=== PATIENT | female | born 1970 | race Caucasian/White ===

== ENCOUNTER 2016-07-14 17:19 | Emergency (ER) | payer SELFPAY ==
[2016-07-14] MEDS ORDERED: OXYCODONE-ACETAMINOPHEN 5-325 MG TABLET PO ONE (18:45)
--- NOTE | 2016-07-14 18:46 | ER Document Report ---
ED Medical Screen (RME) - General Mode of Arrival: Ambulatory Information source: Patient TRAVEL OUTSIDE OF THE [place] IN LAST 30 DAYS: No - HPI Patient complains to provider of: Right Chest wall pain Onset: This evening Associated Symptoms: Other - see notes above <ODILON DE OLIVEIRA - Last Filed: 07/14/16 18:58> <CHIPPATRICIA LEAH - Last Filed: 07/14/16 20:18> - General Chief Complaint: Abdominal Pain Stated Complaint: RIGHT FLANK PAIN Notes: 45 year old female with history of pleurisy presents to the ED complaining of right chest wall pain that started earlier today. Patient reports the pain is exacerbated with breathing and urination. Patient reports she took Tylenol for pain, but asks specifically for Dilaudid and Morphine upon examination. Prior to triage, patient was seen smoking outside. (ODILON DE OLIVEIRA) - Related Data Allergies/Adverse Reactions: No Known Allergies Allergy (Verified 07/14/16 17:53) Past Medical History - General Information source: Patient - Social History Family history: Reviewed & Not Pertinent - Past Medical History Cardiac Medical History: Reports: Hx Hypertension Pulmonary Medical History: Reports: Hx Sleep Apnea Denies: Hx Tuberculosis Neurological Medical History: Reports: Hx Seizures Endocrine Medical History: Denies: Hx Diabetes Mellitus Type 1, Hx Diabetes Mellitus Type 2 Renal/ Medical History: Denies: Hx Peritoneal Dialysis Malignancy Medical History: Denies: Hx Leukemia GI Medical History: Reports: Hx Gastritis - Alcoholic gastritis, Hx Gastroesophageal Reflux Disease, Hx Hepatitis - Alcoholic hepatitis, Hx Irritable Bowel Musculoskeltal Medical History: Reports Other - pleurisy Psychiatric Medical History: Reports: Hx Depression Traumatic Medical History: Reports: Hx Fractures - coccyx Infectious Medical History: Reports: Hx Hepatitis - Alcoholic hepatitis. Denies : Hx HIV Past Surgical History: Reports: Hx Orthopedic Surgery - L ankle, Hx Tubal Ligation - Immunizations Immunizations up to date: Yes Hx Diphtheria, Pertussis, Tetanus Vaccination: Yes <ODILON DE OLIVEIRA - Last Filed: 07/14/16 18:58> Review of Systems - Review of Systems Constitutional: No symptoms reported EENT: No symptoms reported Cardiovascular: See HPI, Chest pain - right chest wall pain Respiratory: No symptoms reported Gastrointestinal: No symptoms reported Genitourinary: No symptoms reported Female Genitourinary: No symptoms reported Musculoskeletal: No symptoms reported Skin: No symptoms reported Hematologic/Lymphatic: No symptoms reported Neurological/Psychological: No symptoms reported -: Yes All other systems reviewed and negative <ODILON DE OLIVEIRA - Last Filed: 07/14/16 18:58> Physical Exam - General General appearance: Alert In distress: None - Respiratory Respiratory status: No respiratory distress Chest palpation: Tender - right chest wall tender to palpation - Cardiovascular Rhythm: Regular Heart sounds: Normal auscultation - Psychological Associated symptoms: Uncooperative <ODILON DE OLIVEIRA - Last Filed: 07/14/16 18:58> Course - Laboratory Result Diagrams: 07/14/16 18:50 07/14/16 18:50 <ODILON DE OLIVEIRA - Last Filed: 07/14/16 18:58> - Laboratory Result Diagrams: 07/14/16 18:50 07/14/16 18:50 <PATRICIA SAUNDERS - Last Filed: 07/14/16 20:18> - Re-evaluation Re-evalutation: 07/14/16 20:18 I personally performed the services described in the documentation, reviewed and edited the documentation which was dictated to the scribe in my presence, and it accurately records my words and actions. (PATRICIA SAUNDERS) - Vital Signs Vital signs: Temp Pulse Resp BP Pulse Ox 99.0 F 105 H 20 158/92 H 97 07/14/16 17:55 07/14/16 17:55 07/14/16 17:55 07/14/16 17:55 07/14/16 17:55 - Laboratory Laboratory results interpreted by me: 07/14/16 07/14/16 18:50 18:50 WBC 14.7 H RDW 14.4 H Lymphocytes % 47.5 H Absolute Lymphocytes 7.0 H Sodium 146.8 H Carbon Dioxide 21 L Anion Gap 21 H Glucose 287 H Total Protein 9.0 H Scribe Documentation - Scribe Written by Paul:: Paul Juarez, 07/14/2016 1910 acting as scribe for :: Chip <ODILON DE OLIVEIRA - Last Filed: 07/14/16 18:58>
[2016-07-14 19:01] LABS: ABSOLUTE EOSINOPHILS # (AUTO) 0.1 10^3/uL (0.0-0.6); ABSOLUTE MONOCYTES (AUTO) 0.7 10^3/uL (0.1-1.4); ABSOLUTE NEUT (AUTO) 6.8 10^3/uL (1.7-8.2); BASOPHILS % (AUTO) 0.2 % (0-2); HEMATOCRIT 45.2 % (36.0-47.0); HEMOGLOBIN 15.1 g/dL (12.0-15.5); HGB HCT DIFFERENCE 0.1; LYMPHOCYTES % (AUTO) 47.5 % (13-45); MEAN CORPUSCULAR HEMOGLOBIN 29.8 pg (27.0-33.4); MEAN CORPUSCULAR HGB CONC 33.5 g/dL (32.0-36.0); MEAN CORPUSCULAR VOLUME 89 fl (80-97); MONOCYTES % (AUTO) 4.9 % (3-13); RED BLOOD COUNT 5.08 10^6/uL (3.72-5.28); RED CELL DISTRIBUTION WIDTH 14.4 % (11.5-14.0); SEGMENTED NEUTROPHILS % (AUTO) 46.4 % (42-78); WHITE BLOOD COUNT 14.7 10^3/uL (4.0-10.5)
[2016-07-14 19:13] LABS: ALANINE AMINOTRANSFERASE 29 U/L (9-52); ALBUMIN 4.9 g/dL (3.5-5.0); ALKALINE PHOSPHATASE 105 U/L (38-126); ASPARTATE AMINO TRANSFERASE 28 U/L (14-36); BILIRUBIN,TOTAL 0.4 mg/dL (0.2-1.3); BLOOD UREA NITROGEN 12 mg/dL (7-20); CALCIUM 9.5 mg/dL (8.4-10.2); CREATININE RESULT 0.68 mg/dL (0.52-1.25); GLUCOSE 287 mg/dL (75-110)
[2016-07-14 19:21] LABS: CARBON DIOXIDE 21 mmol/L (22-30); CHLORIDE 105 mmol/L (98-107); POTASSIUM 4.3 mmol/L (3.6-5.0); SODIUM 146.8 mmol/L (137-145)
[2016-07-14 19:26] LABS: ANION GAP 21 (5-19)
[2016-07-15] MEDS ORDERED: NORMAL SALINE 1000 ML 1,000 ML IV ONE (00:29)
[2016-07-15] MEDS ORDERED: HYDROMORPHONE HCL INJ/PF 2 MG/ML AMPULE IV ONE ×2 (00:29→01:51)
[2016-07-15] MEDS ORDERED: FAMOTIDINE INJ/PF 20 MG/2 ML SDV IV ONE (00:29)
[2016-07-15] MEDS ORDERED: ONDANSETRON HCL INJ/PF 4 MG/2 ML SDV IV ONE (00:29)
--- NOTE | 2016-07-15 00:37 | ER Document Report ---
ED General - General Chief Complaint: Abdominal Pain Stated Complaint: RIGHT FLANK PAIN Time seen by provider: 00:13 Mode of Arrival: Ambulatory Information source: Patient TRAVEL OUTSIDE OF THE [place] IN LAST 30 DAYS: No - HPI Notes: Patient is a 45-year-old female history of alcohol abuse presents emergency Department with report of 6 weeks ago having sudden onset of right lateral chest wall pain, with persistent pain since that time. She describes the pain is pleuritic, but denies any significant change in her chronic smoker's cough. She also has a history of chronic pancreatitis secondary to alcohol use. She reports previous history of pleurisy at age 13, but has not had pleuritic chest pain since that time. The patient last had a CT scan of the abdomen in December 2013 which showed colitis in the ascending colon and hepatic flexure, but she denies any current diarrhea. She does report associated nausea and vomiting without any blood. - Related Data Allergies/Adverse Reactions: No Known Allergies Allergy (Verified 07/14/16 17:53) Past Medical History - General Information source: Patient - Social History Smoking Status: Current Every Day Smoker Cigarette use (# per day): Yes Smoking Education Provided: Yes Frequency of alcohol use: Occasional Drug Abuse: None Lives with: Spouse/Significant other Family History: Reviewed & Not Pertinent Patient has suicidal ideation: No Patient has homicidal ideation: No - Past Medical History Cardiac Medical History: Reports: Hx Hypertension Pulmonary Medical History: Reports: Hx Sleep Apnea Denies: Hx Tuberculosis Neurological Medical History: Reports: Hx Seizures Endocrine Medical History: Denies: Hx Diabetes Mellitus Type 1, Hx Diabetes Mellitus Type 2 Renal/ Medical History: Denies: Hx Peritoneal Dialysis Malignancy Medical History: Denies: Hx Leukemia GI Medical History: Reports: Hx Gastritis - Alcoholic gastritis, Hx Gastroesophageal Reflux Disease, Hx Hepatitis - Alcoholic hepatitis, Hx Irritable Bowel. Denies: Hx Crohn's Disease, Hx Hiatal Hernia, Hx Liver Failure , Hx Ulcer Musculoskeltal Medical History: Denies Hx Arthritis, Denies Hx Fibromyalgia, Denies Hx Muscular Dystrophy, Reports Other - pleurisy Psychiatric Medical History: Reports: Hx Depression Denies: Hx Bipolar Disorder, Hx Post Traumatic Stress Disorder, Hx Schizophrenia Traumatic Medical History: Reports: Hx Fractures - coccyx Infectious Medical History: Reports: Hx Hepatitis - Alcoholic hepatitis. Denies : Hx HIV Past Surgical History: Reports: Hx Orthopedic Surgery - L ankle, Hx Tubal Ligation. Denies: Hx Appendectomy, Hx Bowel Surgery, Hx Section, Hx Cholecystectomy, Hx Colostomy, Hx Coronary Artery Bypass Graft, Hx Gastric Bypass Surgery, Hx Herniorrhaphy, Hx Hysterectomy, Hx Mastectomy, Hx Pacemaker, Hx Tonsillectomy - Immunizations Immunizations up to date: Yes Hx Diphtheria, Pertussis, Tetanus Vaccination: Yes Hx Pneumococcal Vaccination: 04/12/00 Review of Systems - Review of Systems Notes: REVIEW OF SYSTEMS: CONSTITUTIONAL : Denies fever, chills, or sweats. Denies recent illness. EENT: Denies eye, ear, throat, or mouth pain or symptoms. Denies nasal or sinus congestion or discharge. Denies throat, tongue, or mouth swelling or difficulty swallowing. CARDIOVASCULAR: Denies palpitations or racing or irregular heart beat. Denies ankle edema. RESPIRATORY: Denies shortness of breath, difficulty breathing, or wheezing. GASTROINTESTINAL: Denies distention. Denies diarrhea. Denies blood in vomitus, stools, or per rectum. Denies black, tarry stools. Denies constipation. GENITOURINARY: Denies difficulty urinating, painful urination, burning, frequency, blood in urine, or discharge. FEMALE GENITOURINARY: Denies vaginal bleeding, heavy or abnormal periods, irregular periods. Denies vaginal discharge or odor. MUSCULOSKELETAL: Denies back or neck pain or stiffness. Denies joint pain or swelling. SKIN: Denies rash, lesions or sores. HEMATOLOGIC : Denies easy bruising or bleeding. LYMPHATIC: Denies swollen, enlarged glands. NEUROLOGICAL: Denies confusion or altered mental status. Denies passing out or loss of consciousness. Denies dizziness or lightheadedness. Denies headache. Denies weakness or paralysis or loss of use of either side. Denies problems with gait or speech. Denies sensory loss, numbness, or tingling. Denies seizures. PSYCHIATRIC: Denies anxiety or stress. Denies depression, suicidal ideation, or homicidal ideation. ALL OTHER SYSTEMS REVIEWED AND NEGATIVE. Dictation was performed using [employer] voice recognition software Physical Exam - Vital signs Vitals: Temp Pulse Resp BP Pulse Ox 99.0 F 105 H 20 158/92 H 97 07/14/16 17:55 07/14/16 17:55 07/14/16 17:55 07/14/16 17:55 07/14/16 17:55 - Notes Notes: PHYSICAL EXAMINATION: GENERAL: Well-appearing, well-nourished . Obvious smell of alcohol. HEAD: Atraumatic, normocephalic. EYES: Pupils equal round and reactive to light, extraocular movements intact, conjunctiva are normal. ENT: Nares patent, oropharynx clear without exudates. Moist mucous membranes. NECK: Normal range of motion, supple without lymphadenopathy LUNGS: Breath sounds coarse bilaterally and equal. No wheezes rales or rhonchi. HEART: Regular rate and rhythm without murmurs ABDOMEN: Soft, nondistended abdomen. No guarding, no rebound. No masses appreciated. Patient is tender through the right upper quadrant extending around to the right lateral lower chest wall region along the lower costal margin and below the breast. There is no erythema or crepitance or bony deformity. Positive Edouard's. Female : deferred Musculoskeletal: Normal range of motion, no pitting or edema. No cyanosis. NEUROLOGICAL: Cranial nerves grossly intact. Normal speech, normal gait. Normal sensory, motor exams PSYCH: Normal mood, normal affect. SKIN: Warm, Dry, normal turgor, no rashes or lesions noted. Course - Re-evaluation Re-evalutation: 07/15/16 00:38 Patient was counseled at length about the need to quit drinking alcohol. 07/15/16 03:27 Patient counseled at length about the need to quit smoking. I discussed at length with the patient and her related to the findings of the CT scans of the chest and abdomen with findings of what appears to be a lung malignancy and pancreatitis. The patient shows no enzyme elevations of her lipase and amylase. There is no evidence for pneumonia or pneumothorax. Patient was stressed the need for urgent follow-up with oncology for immediate action on diagnosis, staging and institution of treatment for the patient's lung cancer. Currently there is no evidence for obvious metastatic spread. No evidence for gross hepatitis or GI bleed or cardiac ischemia or hypoxia. 07/15/16 03:29 - Vital Signs Vital signs: Temp Pulse Resp BP Pulse Ox 99.0 F 97 16 134/89 H 97 07/14/16 17:55 07/15/16 02:00 07/15/16 02:00 07/15/16 02:00 07/15/16 02:00 - Laboratory Result Diagrams: 07/14/16 18:50 07/14/16 18:50 Laboratory results interpreted by me: 07/14/16 07/14/16 07/15/16 18:50 18:50 02:45 WBC 14.7 H RDW 14.4 H Lymphocytes % 47.5 H Absolute Lymphocytes 7.0 H Sodium 146.8 H Carbon Dioxide 21 L Anion Gap 21 H Glucose 287 H Lactic Acid 0.5 L Total Protein 9.0 H - Diagnostic Test Radiology reviewed: Image reviewed, Reports reviewed - EKG Interpretation by Me EKG shows normal: Sinus rhythm Additional EKG results interpreted by me: 07/15/16 00:39 EKG as interpreted by me showed normal sinus rhythm heart rate of 67. There is no gross evidence for acute MN or ischemia noted. There is no significant change from previous EKG reviewed from 05/29/14. Discharge - Discharge Clinical Impression: Lung mass, Tobacco abuse, Alcohol abuse Chest pain Qualifiers: Chest pain type: chest pain on breathing Qualified Code(s): R07.1 - Chest pain on breathing Pancreatitis Qualifiers: Chronicity: chronic Pancreatitis type: alcohol induced Qualified Code(s): K86.0 - Alcohol-induced chronic pancreatitis Condition: Stable Disposition: HOME, SELF-CARE Additional Instructions: Pancreatitis Pancreatitis is an inflammation of the pancreas, an organ at the back of your abdomen. The pancreas produces insulin and enzymes that digest your food. Pancreatitis can be caused by gallstones in the bile duct, by alcohol or viruses, or by excess fat or calcium in the blood stream. Occasionally, pancreatitis occurs when a stomach ulcer spann through into the pancreas. We try to find the cause of pancreatitis, but some tests can't be done until the pancreas heals. The usual symptoms of pancreatitis are pain in the pit of the stomach that goes straight through to the back, vomiting, and low-grade fever. Severe cases require hospital admission, but many patients with mild pancreatitis do well at home. You will probably need medicine for pain and for vomiting. Sometimes we prescribe medicine to decrease stomach acid secretion and to decrease flow of pancreatic juices. Start with a diet of clear liquids (soda pop, juices). When the pain is decreasing, you can add some simple starches (potato, toast, applesauce). Avoid proteins and fats until you are completely painfree. When you're better, your doctor may suggest treatment to prevent future pancreatitis (such as gallbladder removal). Avoid alcohol forever. Get immediate treatment for any future episodes. Contact your doctor at once or return here if you have increasing pain, shortness of breath, general swelling, increasing size of the abdomen, continued vomiting, muscle spasms, or other new symptoms. Chronic Obstructive Lung Disease You have chronic obstructive lung disease (COPD). The symptoms come from emphysema (damage to small airways, with trapping of air in large sacks in the lung) and chronic bronchitis (repeated infection and damage to larger airways). The cause is almost always cigarette smoking, although dust exposure, asthma, and infections contribute. You should avoid fumes, dust, and smoke (especially tobacco smoke). Your condition will flare from time to time. There is no cure, but the symptoms can be treated. Bronchodilators (asthma medicine) are often helpful. Antibiotics help when infection is present. When shortness of breath is severe, we may prescribe cortisone medication. If medicine doesn't help enough, we can arrange for you to have an oxygen tank at home. Notify your doctor at once if sputum becomes thick, foul, or bloody, if you develop a fever or chest pain, or if your shortness of breath worsens. Stop smoking! Prescriptions: Oxycodone HCl/Acetaminophen [Percocet 10-325 Mg Tablet] 1 each PO Q4HP PRN #30 tablet PRN Reason: Ondansetron [Zofran Odt 4 mg Tablet] 1 tab PO Q8HP PRN #10 tab.rapdis PRN Reason: For Nausea/Vomiting Referrals: MOHAMUD SERRA MD [Primary Care Provider] - Follow up as needed RADHA HASTINGS MD [ACTIVE STAFF] - Follow up as needed RATNA LUX MD [ACTIVE STAFF] - Follow up as needed
[2016-07-15 01:17] LABS: LIPASE 29.9 U/L (23-300)
[2016-07-15] MEDS ORDERED: OXYCODONE-ACETAMINOPHEN 5-325 MG TABLET PO ONE (03:27)
[2016-07-15 04:24] LABS: APPEARANCE,URINE CLEAR; BILIRUBIN,URINE NEGATIVE (NEGATIVE); GLUCOSE, URINE NEGATIVE (NEGATIVE); KETONES,URINE NEGATIVE (NEGATIVE); LEUKOCYTE ESTERASE,URINE NEGATIVE (NEGATIVE); NITRITE,URINE POSITIVE (NEGATIVE); PROTEIN,URINE NEGATIVE (NEGATIVE)
[2016-07-15 04:25] LABS: URINE SPECIFIC GRAVITY > 1.060
[2016-07-15] MEDS ORDERED: SULFAMETHOXAZOLE/TRIMETHOPRIM 800-160 MG TABLET PO ONE (04:49)
[2016-07-15 05:00] VITALS: BP 136/84
--- NOTE | 2016-07-15 22:05 | EKG REPORT ---
SEVERITY:- BORDERLINE ECG - SINUS RHYTHM BORDERLINE T ABNORMALITIES, ANT-LAT LEADS : Confirmed by: Mary Jo Allen MD 15-Jul-2016 22:04:37
== END 2016-07-15 04:59 | disposition home or self-care (01) ==
LOC: ER 17:19
DX: R91.8 Other nonspecific abnormal finding of lung field (principal); R07.1 Chest pain on breathing; K86.0 Alcohol-induced chronic pancreatitis; R10.9 Unspecified abdominal pain; F17.210 Nicotine dependence, cigarettes, uncomplicated; F10.10 Alcohol abuse, uncomplicated
CPT/HCPCS: 93005; 96376; 99285; 96361; 96374; 96375; 36415; 80307; 82150; 83690; 85025; 80053; 81001; 84484; 83605; 71020; 71275; 74177; 93010; J1170; J2405; J7030; S0028

== ENCOUNTER 2016-07-24 17:11 | Emergency (ER) | payer SELFPAY ==
[2016-07-24] MEDS ORDERED: NORMAL SALINE 500 ML IV ONE (17:24)
[2016-07-24] MEDS ORDERED: KETOROLAC TROMETHAMINE INJ/PF 30 MG/1 ML SDV IV ONE (17:24)
[2016-07-24] MEDS ORDERED: METOCLOPRAMIDE HCL INJ/PF 10 MG/2 ML SDV IV ONE (17:24)
[2016-07-24] MEDS ORDERED: DIPHENHYDRAMINE HCL 50 MG/ML VIAL IV ONE (17:25)
--- NOTE | 2016-07-24 17:27 | ER Document Report ---
ED Medical Screen (RME) - General Chief Complaint: Abdominal Pain Stated Complaint: ABDOMINAL PAIN Notes: I briefly seen and evaluated this patient in my role as physician in triage. I have initiated orders based on this initial evaluation. Please see my colleague' s documentation for complete history, physical, management, diagnosis, and ultimate disposition. My brief evaluation: Patient presents with right upper quadrant abdominal pain. She says that she has chronic pancreatitis. She reports she is a recovering alcoholic and has not had a drink in several months. The patient says her pain medication is not taking care of the pain and that is why she is here today. She was last here about a week ago. The patient indicates that she was just diagnosed with lung cancer and just had a PET scan done. She denies any fevers. He is currently on Bactrim for a urinary tract infection. On exam, patient alert and oriented no distress vital signs stable patient is afebrile nontoxic appearing. Chest clear and equal bilaterally. Heart rate and rhythm are normal no murmurs. Abdomen soft with right upper quadrant tenderness. No peritoneal findings. Bowel sounds present. Medical decision making: We'll initiated down and workup. We will start with Toradol Reglan and Benadryl given patient's history of chronic pain and substance abuse. TRAVEL OUTSIDE OF THE [place] IN LAST 30 DAYS: No - Related Data Allergies/Adverse Reactions: No Known Allergies Allergy (Verified 07/24/16 17:21) Past Medical History - Social History Family history: Reviewed & Not Pertinent - Past Medical History Cardiac Medical History: Reports: Hx Hypertension Pulmonary Medical History: Reports: Hx Sleep Apnea Denies: Hx Tuberculosis Neurological Medical History: Reports: Hx Seizures Endocrine Medical History: Denies: Hx Diabetes Mellitus Type 1, Hx Diabetes Mellitus Type 2 Renal/ Medical History: Denies: Hx Peritoneal Dialysis Malignancy Medical History: Denies: Hx Leukemia GI Medical History: Reports: Hx Gastritis - Alcoholic gastritis, Hx Gastroesophageal Reflux Disease, Hx Hepatitis - Alcoholic hepatitis, Hx Irritable Bowel. Denies: Hx Crohn's Disease, Hx Hiatal Hernia, Hx Liver Failure , Hx Ulcer Musculoskeltal Medical History: Denies Hx Arthritis, Denies Hx Fibromyalgia, Denies Hx Muscular Dystrophy Psychiatric Medical History: Reports: Hx Depression Denies: Hx Bipolar Disorder, Hx Post Traumatic Stress Disorder, Hx Schizophrenia Traumatic Medical History: Reports: Hx Fractures - coccyx Infectious Medical History: Reports: Hx Hepatitis - Alcoholic hepatitis. Denies : Hx HIV Past Surgical History: Reports: Hx Orthopedic Surgery - L ankle, Hx Tubal Ligation. Denies: Hx Appendectomy, Hx Bowel Surgery, Hx Section, Hx Cholecystectomy, Hx Colostomy, Hx Coronary Artery Bypass Graft, Hx Gastric Bypass Surgery, Hx Herniorrhaphy, Hx Hysterectomy, Hx Mastectomy, Hx Pacemaker, Hx Tonsillectomy - Immunizations Immunizations up to date: Yes Hx Diphtheria, Pertussis, Tetanus Vaccination: Yes Physical Exam - Vital signs Vitals: Temp Pulse Resp BP Pulse Ox 98.2 F 75 18 141/87 H 99 07/24/16 17:14 07/24/16 17:14 07/24/16 17:14 07/24/16 17:14 07/24/16 17:14 Course - Vital Signs Vital signs: Temp Pulse Resp BP Pulse Ox 98.2 F 75 18 141/87 H 99 07/24/16 17:14 07/24/16 17:14 07/24/16 17:14 07/24/16 17:14 07/24/16 17:14
[2016-07-24 17:47] LABS: ABSOLUTE BASOPHILS # (AUTO) 0.1 10^3/uL (0.0-0.2); ABSOLUTE EOSINOPHILS # (AUTO) 0.2 10^3/uL (0.0-0.6); ABSOLUTE LYMPHOCYTES (AUTO) 3.5 10^3/uL (0.5-4.7); ABSOLUTE MONOCYTES (AUTO) 0.4 10^3/uL (0.1-1.4); BASOPHILS % (AUTO) 0.8 % (0-2); HEMATOCRIT 37.7 % (36.0-47.0); HEMOGLOBIN 12.8 g/dL (12.0-15.5); HGB HCT DIFFERENCE 0.7; LYMPHOCYTES % (AUTO) 42.9 % (13-45); MEAN CORPUSCULAR HEMOGLOBIN 30.6 pg (27.0-33.4); MEAN CORPUSCULAR VOLUME 90 fl (80-97); MONOCYTES % (AUTO) 4.7 % (3-13); RED BLOOD COUNT 4.18 10^6/uL (3.72-5.28); RED CELL DISTRIBUTION WIDTH 14.4 % (11.5-14.0); SEGMENTED NEUTROPHILS % (AUTO) 49.6 % (42-78); WHITE BLOOD COUNT 8.1 10^3/uL (4.0-10.5)
[2016-07-24 18:03] LABS: ALANINE AMINOTRANSFERASE 35 U/L (9-52); ALBUMIN 4.1 g/dL (3.5-5.0); ALKALINE PHOSPHATASE 88 U/L (38-126); ANION GAP 14 (5-19); ASPARTATE AMINO TRANSFERASE 30 U/L (14-36); BILIRUBIN,DIRECT 0.3 mg/dL (0.0-0.4); BILIRUBIN,TOTAL 0.5 mg/dL (0.2-1.3); BLOOD UREA NITROGEN 9 mg/dL (7-20); CALCIUM 9.1 mg/dL (8.4-10.2); CARBON DIOXIDE 25 mmol/L (22-30); CHLORIDE 104 mmol/L (98-107); CREATININE RESULT 1.63 mg/dL (0.52-1.25); GLUCOSE 215 mg/dL (75-110); LIPASE 20.5 U/L (23-300); POTASSIUM 4.2 mmol/L (3.6-5.0); SODIUM 142.8 mmol/L (137-145); TOTAL PROTEIN 7.1 g/dL (6.3-8.2)
[2016-07-24] MEDS ORDERED: NORMAL SALINE 1000 ML 1,000 ML IV ONE (19:09)
[2016-07-24] MEDS ORDERED: HYDROMORPHONE HCL INJ/PF 2 MG/ML AMPULE IV ONE ×2 (19:15→20:22)
--- NOTE | 2016-07-24 20:16 | ER Document Report ---
ED General - General Chief Complaint: Abdominal Pain Stated Complaint: ABDOMINAL PAIN Mode of Arrival: Ambulatory Information source: Patient Notes: 45 yr old female presents with recent diagnosis of lung ca, chronic alcoholic with pancreatitis with complaints of left upper quadtrant abd pain. pt had a pet scan performed today, notes she has pain medication but the pain was severe so she came in for pain control TRAVEL OUTSIDE OF THE [place] IN LAST 30 DAYS: No - HPI Onset: Other Onset/Duration: Persistent Quality of pain: Achy Severity: Mild Pain Level: 1 Associated symptoms: Other Exacerbated by: Denies Relieved by: Denies Similar symptoms previously: Yes Recently seen / treated by doctor: Yes - Related Data Allergies/Adverse Reactions: No Known Allergies Allergy (Verified 07/24/16 17:21) Past Medical History - Social History Smoking Status: Former Smoker Cigarette use (# per day): No Chew tobacco use (# tins/day): No Smoking Education Provided: No Frequency of alcohol use: None Drug Abuse: None Family History: Reviewed & Not Pertinent Patient has suicidal ideation: No Patient has homicidal ideation: No - Past Medical History Cardiac Medical History: Reports: Hx Hypertension Pulmonary Medical History: Reports: Hx Sleep Apnea Denies: Hx Tuberculosis Neurological Medical History: Reports: Hx Seizures Endocrine Medical History: Denies: Hx Diabetes Mellitus Type 1, Hx Diabetes Mellitus Type 2 Renal/ Medical History: Denies: Hx Peritoneal Dialysis Malignancy Medical History: Denies: Hx Leukemia GI Medical History: Reports: Hx Gastritis - Alcoholic gastritis, Hx Gastroesophageal Reflux Disease, Hx Hepatitis - Alcoholic hepatitis, Hx Irritable Bowel. Denies: Hx Crohn's Disease, Hx Hiatal Hernia, Hx Liver Failure , Hx Ulcer Musculoskeltal Medical History: Denies Hx Arthritis, Denies Hx Fibromyalgia, Denies Hx Muscular Dystrophy Psychiatric Medical History: Reports: Hx Depression Denies: Hx Bipolar Disorder, Hx Post Traumatic Stress Disorder, Hx Schizophrenia Traumatic Medical History: Reports: Hx Fractures - coccyx Infectious Medical History: Reports: Hx Hepatitis - Alcoholic hepatitis. Denies : Hx HIV Past Surgical History: Reports: Hx Orthopedic Surgery - L ankle, Hx Tubal Ligation. Denies: Hx Appendectomy, Hx Bowel Surgery, Hx Section, Hx Cholecystectomy, Hx Colostomy, Hx Coronary Artery Bypass Graft, Hx Gastric Bypass Surgery, Hx Herniorrhaphy, Hx Hysterectomy, Hx Mastectomy, Hx Pacemaker, Hx Tonsillectomy - Immunizations Immunizations up to date: Yes Hx Diphtheria, Pertussis, Tetanus Vaccination: Yes Hx Pneumococcal Vaccination: 04/12/00 Review of Systems - Review of Systems Notes: REVIEW OF SYSTEMS: CONSTITUTIONAL : Denies fever, chills, or sweats. Denies recent illness. EENT: Denies eye, ear, throat, or mouth pain or symptoms. Denies nasal or sinus congestion or discharge. Denies throat, tongue, or mouth swelling or difficulty swallowing. CARDIOVASCULAR: Denies chest pain. Denies palpitations or racing or irregular heart beat. Denies ankle edema. RESPIRATORY: Denies cough, cold, or chest congestion. Denies shortness of breath, difficulty breathing, or wheezing. GASTROINTESTINAL: admits to abd pain GENITOURINARY: Denies difficulty urinating, painful urination, burning, frequency, blood in urine, or discharge. FEMALE GENITOURINARY: Denies vaginal bleeding, heavy or abnormal periods, irregular periods. Denies vaginal discharge or odor. MUSCULOSKELETAL: Denies back or neck pain or stiffness. Denies joint pain or swelling. SKIN: Denies rash, lesions or sores. HEMATOLOGIC : Denies easy bruising or bleeding. LYMPHATIC: Denies swollen, enlarged glands. NEUROLOGICAL: Denies confusion or altered mental status. Denies passing out or loss of consciousness. Denies dizziness or lightheadedness. Denies headache. Denies weakness or paralysis or loss of use of either side. Denies problems with gait or speech. Denies sensory loss, numbness, or tingling. Denies seizures. PSYCHIATRIC: Denies anxiety or stress. Denies depression, suicidal ideation, or homicidal ideation. ALL OTHER SYSTEMS REVIEWED AND NEGATIVE. Dictation was performed using [employer] voice recognition software PHYSICAL EXAMINATION: GENERAL: Well-appearing, well-nourished and in no acute distress. HEAD: Atraumatic, normocephalic. EYES: Pupils equal round and reactive to light, extraocular movements intact, conjunctiva are normal. ENT: Nares patent, oropharynx clear without exudates. Moist mucous membranes. NECK: Normal range of motion, supple without lymphadenopathy LUNGS: Breath sounds clear to auscultation bilaterally and equal. No wheezes rales or rhonchi. HEART: Regular rate and rhythm without murmurs ABDOMEN: Soft mildly tender i nthe luq Female : deferred Musculoskeletal: Normal range of motion, no pitting or edema. No cyanosis. NEUROLOGICAL: Cranial nerves grossly intact. Normal speech, normal gait. Normal sensory, motor exams PSYCH: Normal mood, normal affect. SKIN: Warm, Dry, normal turgor, no rashes or lesions noted. Physical Exam - Vital signs Vitals: Temp Pulse Resp BP Pulse Ox 98.2 F 75 18 141/87 H 99 07/24/16 17:14 07/24/16 17:14 07/24/16 17:14 07/24/16 17:14 07/24/16 17:14 Course - Re-evaluation Re-evalutation: 07/24/16 20:[address] Duvall who evaluated the patient's PET scan noted no mass on kidneys or pancreas. Mild renal insufficiency is noted, patient is hydrated and given pain control in the ED 07/24/16 20:23 Patient's fluids have been given very quickly, patient feels great and wishes to eat ice chips. She is given pain control and will have follow-up with her oncologist on Wednesday After performing a Medical Screening Examination, I estimate there is LOW risk for ACUTE APPENDICITIS, BOWEL OBSTRUCTION, ACUTE CHOLECYSTITIS, PERFORATED DIVERTICULITIS, INCARCERATED HERNIA, PANCREATITIS, PELVIC INFLAMMATORY DISEASE, PERFORATED ULCER, ECTOPIC , or TUBO-OVARIAN ABSCESS, thus I consider the discharge disposition reasonable. Also, there is no evidence or peritonitis , sepsis, or toxicity. I have reevaluated this patient multiple times and no significant life threatening changes are noted. The patient and I have discussed the diagnosis and risks, and we agree with discharging home with close follow-up with the understanding that symptoms and presentations can change. We also discussed returning to the Emergency Department immediately if new or worsening symptoms occur. We have discussed the symptoms which are most concerning (e.g., bloody stool, fever, changing or worsening pain, vomiting) that necessitate immediate return. - Vital Signs Vital signs: Temp Pulse Resp BP Pulse Ox 98.2 F 75 18 141/87 H 99 07/24/16 17:14 07/24/16 17:14 07/24/16 17:14 07/24/16 17:14 07/24/16 17:14 - Laboratory Result Diagrams: 07/24/16 17:32 07/24/16 17:32 Laboratory results interpreted by me: 07/24/16 07/24/16 17:32 17:32 RDW 14.4 H Creatinine 1.63 H Est GFR ( Amer) 41 L Est GFR (Non-Af Amer) 34 L Glucose 215 H Lipase 20.5 L - Diagnostic Test Radiology reviewed: Image reviewed, Reports reviewed - PET exam noted no mass on pancreas or kidneys Discharge - Discharge Clinical Impression: Acute renal insufficiency Abdominal pain Qualifiers: Abdominal location: left upper quadrant Qualified Code(s): R10.12 - Left upper quadrant pain Condition: Stable Disposition: HOME, SELF-CARE Instructions: Abdominal Pain ([facility]) Additional Instructions: Please follow-up with your oncologist per your previous appointment or return immediately if there are any other concerns
[2016-07-24 20:56] VITALS: BP 132/76
== END 2016-07-24 20:54 | disposition home or self-care (01) ==
LOC: ER 17:11
DX: N28.9 Disorder of kidney and ureter, unspecified (principal); R10.12 Left upper quadrant pain; C34.90 Malignant neoplasm of unspecified part of unspecified bronchus or lung; K70.10 Alcoholic hepatitis without ascites; K21.9 Gastro-esophageal reflux disease without esophagitis; I10 Essential (primary) hypertension; Z87.891 Personal history of nicotine dependence; Z98.51 Tubal ligation status
CPT/HCPCS: 96376; 99284; 96361; 96374; 36415; 83690; 85025; 80053; J1170; J7030

== ENCOUNTER → 2016-07-24 | Outpatient (CLI) | payer SELFPAY | LOC: RAD 13:38 | PROVIDERS: ATTEND Internal Medicine | DX: R91.1 Solitary pulmonary nodule (principal); J98.4 Other disorders of lung | CPT/HCPCS: 78815; A9552 ==

== ENCOUNTER 2016-09-07 16:36 | Emergency (ER) | payer SELFPAY ==
[2016-09-07 17:05] VITALS: BP 126/66
[2016-09-07] MEDS ORDERED: ONDANSETRON 4 MG TAB.RAPDIS PO ONE (18:26)
[2016-09-07] MEDS ORDERED: OXYCODONE-ACETAMINOPHEN 5-325 MG TABLET PO ONE (18:26)
--- NOTE | 2016-09-07 18:27 | ER Document Report ---
ED General - General Chief Complaint: Rib Pain Stated Complaint: RIGHT FLANK PAIN Time Seen by Provider: 09/07/16 17:35 Mode of Arrival: Ambulatory Information source: Patient Notes: She will female presented to ED for right hip and right rib pain the last 2 months or more. She has a history of lung cancer chronic alcoholism pancreatitis and has had a PET scan CT and everything run but she has not followed up with her doctor as instructed she states she did not have the money for follow up MD TRAVEL OUTSIDE OF THE [place] IN LAST 30 DAYS: No - HPI Onset: Other - chronic Onset/Duration: Persistent Quality of pain: Sharp Severity: Severe Pain Level: 5 Associated symptoms: Other - chronic pain to right hip and ribs Exacerbated by: Movement, Walking Relieved by: Denies Similar symptoms previously: Yes Recently seen / treated by doctor: Yes - Related Data Allergies/Adverse Reactions: No Known Allergies Allergy (Verified 07/24/16 17:21) Past Medical History - General Information source: Patient - Social History Smoking Status: Former Smoker Cigarette use (# per day): No Chew tobacco use (# tins/day): No Smoking Education Provided: No Frequency of alcohol use: recovering alcoholic Drug Abuse: None Family History: Reviewed & Not Pertinent - Past Medical History Cardiac Medical History: Reports: Hx Hypertension Pulmonary Medical History: Reports: Hx COPD, Hx Sleep Apnea EENT Medical History: Reports: None Neurological Medical History: Reports: Hx Seizures Endocrine Medical History: Reports: None Renal/ Medical History: Reports: None Malignancy Medical History: Reports: Hx Lung Cancer GI Medical History: Reports: Hx Gastritis - Alcoholic gastritis, Hx Gastroesophageal Reflux Disease, Hx Hepatitis - Alcoholic hepatitis, Hx Irritable Bowel, Other - pancreatitis Musculoskeltal Medical History: Reports Hx Arthritis, Reports Hx Musculoskeletal Deformity, Reports Hx Musculoskeletal Trauma Skin Medical History: Reports None Psychiatric Medical History: Reports: Hx Depression Traumatic Medical History: Reports: Hx Fractures - coccyx Infectious Medical History: Reports: Hx Hepatitis - Alcoholic hepatitis. Denies : Hx HIV Past Surgical History: Reports: Hx Orthopedic Surgery - L ankle, Hx Tubal Ligation - Immunizations Immunizations up to date: Yes Hx Diphtheria, Pertussis, Tetanus Vaccination: Yes Hx Pneumococcal Vaccination: 04/12/00 Review of Systems - Review of Systems Constitutional: No symptoms reported EENT: No symptoms reported Cardiovascular: No symptoms reported Respiratory: No symptoms reported Gastrointestinal: No symptoms reported Genitourinary: No symptoms reported Female Genitourinary: No symptoms reported Musculoskeletal: Other - Pain to right ribs and hip Skin: No symptoms reported Hematologic/Lymphatic: No symptoms reported Neurological/Psychological: No symptoms reported -: Yes All other systems reviewed and negative Physical Exam - Vital signs Vitals: Temp Pulse Resp BP Pulse Ox 98 F 70 12 126/66 H 100 09/07/16 17:02 09/07/16 17:02 09/07/16 17:02 09/07/16 17:02 09/07/16 17:02 Interpretation: Normal - General General appearance: Appears well, Alert - HEENT Head: Normocephalic, Atraumatic Eyes: Normal Pupils: PERRL - Respiratory Respiratory status: No respiratory distress Chest status: Tender, Pain with cough Breath sounds: Normal Chest palpation: Normal - Cardiovascular Rhythm: Regular Heart sounds: Normal auscultation Murmur: No - Abdominal Inspection: Normal Distension: No distension Bowel sounds: Normal Tenderness: Nontender Organomegaly: No organomegaly - Back Back: Normal, Nontender - Extremities General upper extremity: Normal inspection, Nontender, Normal color, Normal ROM , Normal temperature General lower extremity: Normal inspection, Normal color, Normal ROM, Normal temperature, Normal weight bearing Shoulder: Tender. No: Normal, Nontender, Abrasion, Deformity, Dislocation, Ecchymosis, Instability, Laceration, Limited ROM, Other - Neurological Neuro grossly intact: Yes Cognition: Normal Orientation: AAOx4 Hyden Coma Scale Eye Opening: Spontaneous Shiva Coma Scale Verbal: Oriented Hyden Coma Scale Motor: Obeys Commands Shiva Coma Scale Total: 15 Speech: Normal Motor strength normal: LUE, RUE, LLE, RLE Sensory: Normal - Psychological Associated symptoms: Normal affect, Normal mood - Skin Skin Temperature: Warm Skin Moisture: Dry Skin Color: Normal Course - Vital Signs Vital signs: Temp Pulse Resp BP Pulse Ox 98 F 70 12 126/66 H 100 09/07/16 17:02 09/07/16 17:02 09/07/16 17:02 09/07/16 17:02 09/07/16 17:02 Discharge - Discharge Clinical Impression: right rib pain chronic, Chronic right hip pain Chronic pain Qualifiers: Chronic pain type: other chronic pain Qualified Code(s): G89.29 - Other chronic pain Condition: Stable Disposition: HOME, SELF-CARE Additional Instructions: Chronic Pain Control Stress, inactivity, and depression make pain more severe regardless of the cause of the pain. Stress and poor physical condition can cause pain such as headaches and backache. Relaxation: Rest in a quiet place with your eyes closed for 20 minutes twice daily. Concentrate on a pleasant image, or simply "feel" your breathing. Clear your mind. Stress management: Deal with your "stressors." Either take action, or eliminate the stressor from your life. Don't let things hang over you. Accept those things you can't change. Nutrition: Eat small, balanced meals -- don't skip, don't overeat. Meals should be high-carbohydrate, low-sugar, low-fat. Exercise: Exercise helps painful conditions and eases stress. Get 30 minutes of moderate exercise, five days a week. Do an activity that does not flare your pain. Precautions: Pain which continues to disrupt daily activities, or which changes in nature, requires a medical evaluation. Pain Clinic referral is available. We do not manage chronic pain in the Emergency Department. We will try to appropriately help you through an acute flare of your chronic painful condition , but for on-going chronic pain that does not improve, you will need to see your private doctor or automobile painter. We do not provide repeated medication management of chronic painful conditions. If you wish, we can provide the name of local pain management physicians. Acetaminophen Acetaminophen may be taken for pain relief or fever control. It's much safer than aspirin, offering a wider range of "safe" dosages. It is safe during . Some brand names are Tylenol, Panadol, Datril, Anacin 3, Tempra, and Liquiprin. Acetaminophen can be repeated every four hours. The following are maximum recommended dosages: WEIGHT Dose Drops Elixir Chewable( 80mg) (LBS.) drprs=droppers tsp=teaspoon 6 40 mg .4 ml (1/2) 6-11 80 mg .8 ml (full) 1/2 tsp 1 tab 12-16 120 mg 1 1/2 drprs 3/4 tsp 1 1/2 tabs 17-23 160 mg 2 drprs 1 tsp 2 tabs 24-30 240 mg 3 drprs 1 1/2 tsp 3 tabs 30-35 320 mg 2 tsp 4 tabs 36-41 360 mg 2 1/4 tsp 4 1 /2 tabs 42-47 400 mg 2 1/2 tsp 5 tabs 48-53 480 mg 3 tsp 6 tabs 54-59 520 mg 3 1/4 tsp 6 1 /2 tabs 60-64 560 mg 3 1/2 tsp 7 tabs 65-70 600 mg 3 3/4 tsp 7 1 /2 tabs 71-76 640 mg 4 tsp 8 tabs 77-82 720 mg 4 1/2 tsp 9 tabs 83-88 800 mg 5 tsp 10 tabs >89 pounds or adults 650 mg to 900 mg Acetaminophen can be repeated every four hours. Maximum daily dose not to exceed 4000 mg. These maximum recommended dosages are slightly higher than the dosages written on the product container, but these dosages are very safe and well below the toxic dosage for acetaminophen. Ibuprofen Ibuprofen is an excellent, safe drug for pain control. In addition, it has potent antiinflammatory effects which are beneficial, especially in the treatment of injuries, arthritis, or tendonitis. It's best to take ibuprofen with food. Persons with ulcer disease or allergy to aspirin should notify their physician of this before taking ibuprofen. Take the medication exactly as prescribed. Don't take additional doses unless instructed to do so by your doctor. If you develop wheezing, shortness of breath, hives, faintness, stomach pain, vomiting, or dark black stools, return for re-evaluation at once. FOLLOW-UP CARE: If you have been referred to a physician for follow-up care, call the physician s office for an appointment as you were instructed or within the next two days. If you experience worsening or a significant change in your symptoms, notify the physician immediately or return to the Emergency Department at any time for re-evaluation. Your follow-up visit that you were supposed to make after your last visit to the emergency room. I have given you a copy of your PET scan please follow-up on that. I have given you the name and number of [facility] and [facility] please try to call 1 of these to follow-up. Forms: Elevated Blood Pressure Referrals: [facility] [Provider Group] - Follow up as needed [facility] [Provider Group] - Follow up as needed
== END 2016-09-07 18:55 | disposition home or self-care (01) ==
LOC: ER 16:36
DX: R07.81 Pleurodynia (principal); M25.551 Pain in right hip; G89.29 Other chronic pain; R10.9 Unspecified abdominal pain; Z85.118 Personal history of other malignant neoplasm of bronchus and lung; F10.20 Alcohol dependence, uncomplicated; Z87.891 Personal history of nicotine dependence
CPT/HCPCS: 99283; S0119

== ENCOUNTER 2016-12-04 09:50 | Emergency (ER) | payer SELFPAY ==
[2016-12-04] MEDS ORDERED: OXYCODONE-ACETAMINOPHEN 5-325 MG TABLET PO ONE (10:04)
--- NOTE | 2016-12-04 10:18 | ER Document Report ---
ED Cardiac - General Chief Complaint: Chest Pain Stated Complaint: CHEST PAIN Time Seen by Provider: 12/04/16 09:56 Information source: Patient Notes: 45-year-old female who presents today with some intermittent nonradiating "sharp " chest pain. She denies any abdominal pain. History of alcoholic pancreatitis. She denies drinking any recent alcohol. Patient denies any calf pain, leg swelling, recent trips or travel. She does not know her family history. Patient does admit to smoking. Patient states that the pain is nonexertional and she denies any aggravating or relieving factors. She does state she is short of breath. She denies cough, hemoptysis, or history of chest pain. TRAVEL OUTSIDE OF THE [place] IN LAST 30 DAYS: No - HPI Patient complains to provider of: Chest pain Was the onset of pain: Gradual When did pain begin: See above Is the pain a: New problem Chest pain location: Substernal Quality of pain: Other - See above Chest pain radiation location: None Severity now: Mild Severity at worst: Moderate Pain level currently: 1 Chest pain precipitating factors: At Rest Cardiac risk factors: Diabetes, Smoker Positive cardiac history: No Associated symptoms: Other - See above Exacerbated by: Denies Relieved by: Nothing Similar symptoms previously: No Recently seen / treated by doctor: No - Related Data Allergies/Adverse Reactions: Penicillins Allergy (Verified 12/04/16 10:16) ketorolac [From Toradol] Adverse Reaction (Verified 12/04/16 10:16) tramadol Adverse Reaction (Verified 12/04/16 10:16) Home Medications: Current Home Medications Fluoxetine HCl [Prozac] 80 mg PO DAILY 12/04/16 [History] Temazepam 30 mg PO QHS 12/04/16 [History] Past Medical History - General Information source: Patient - Social History Smoking Status: Unknown if Ever Smoked Cigarette use (# per day): No Chew tobacco use (# tins/day): No Smoking Education Provided: No Frequency of alcohol use: None Drug Abuse: None Family History: Reviewed & Not Pertinent - Past Medical History Cardiac Medical History: Reports: Hx Hypertension Pulmonary Medical History: Reports: Hx COPD, Hx Sleep Apnea Denies: Hx Tuberculosis Neurological Medical History: Reports: Hx Seizures Endocrine Medical History: Denies: Hx Diabetes Mellitus Type 1, Hx Diabetes Mellitus Type 2 Renal/ Medical History: Denies: Hx Peritoneal Dialysis Malignancy Medical History: Reports: Hx Lung Cancer. Denies: Hx Leukemia GI Medical History: Reports: Hx Gastritis - Alcoholic gastritis, Hx Gastroesophageal Reflux Disease, Hx Hepatitis - Alcoholic hepatitis, Hx Irritable Bowel. Denies: Hx Crohn's Disease, Hx Hiatal Hernia, Hx Liver Failure , Hx Ulcer Musculoskeltal Medical History: Reports Hx Arthritis, Denies Hx Fibromyalgia, Denies Hx Muscular Dystrophy, Reports Hx Musculoskeletal Deformity, Reports Hx Musculoskeletal Trauma Psychiatric Medical History: Reports: Hx Depression Denies: Hx Bipolar Disorder, Hx Post Traumatic Stress Disorder, Hx Schizophrenia Traumatic Medical History: Reports: Hx Fractures - coccyx Infectious Medical History: Reports: Hx Hepatitis - Alcoholic hepatitis. Denies : Hx HIV Past Surgical History: Reports: Hx Orthopedic Surgery - L ankle, Hx Tubal Ligation. Denies: Hx Appendectomy, Hx Bowel Surgery, Hx Section, Hx Cholecystectomy, Hx Colostomy, Hx Coronary Artery Bypass Graft, Hx Gastric Bypass Surgery, Hx Herniorrhaphy, Hx Hysterectomy, Hx Mastectomy, Hx Pacemaker, Hx Tonsillectomy - Immunizations Immunizations up to date: Yes Hx Diphtheria, Pertussis, Tetanus Vaccination: Yes Hx Pneumococcal Vaccination: 04/12/00 Review of Systems - Review of Systems Constitutional: denies: Fever EENT: denies: Eye discharge, Nose discharge Cardiovascular: Chest pain. denies: Palpitations Respiratory: Short of breath. denies: Cough Gastrointestinal: denies: Vomiting Musculoskeletal: denies: Leg swelling Skin: denies: Rash Neurological/Psychological: Other - no slurred speech -: Yes All other systems reviewed and negative Physical Exam - Vital signs Vitals: Resp 22 H 12/04/16 09:51 Interpretation: Normal Notes: Reviewed vital signs and nursing note as charted by RN. CONSTITUTIONAL: Alert and oriented and responds appropriately to questions. Well -appearing; well-nourished HEAD: Normocephalic; atraumatic EYES: PERRL CARD: Regular rate and rhythm; no murmur RESP: Normal chest excursion without splinting or tachypnea; tenderness to palpation of the left anterior chest wall with no obvious erythema or crepitus; breath sounds clear and equal bilaterally; no wheezes, no rhonchi, no rales ABD/GI: Normal bowel sounds; non-distended; soft, non-tender BACK: The back appears normal and is non-tender to palpation, there is no CVA tenderness EXT: Normal ROM in all joints; non-tender to palpation; no cyanosis, no effusions, no edema SKIN: Normal color for age and race; warm; dry; good turgor; capillary refill < 2 seconds; no acute lesions noted NEURO: Moves all extremities equally; Motor and sensory function intact PSYCH: The patient's mood and manner are appropriate. Grooming and personal hygiene are appropriate. Course - Re-evaluation Re-evalutation: 12/04/16 10:07 EKG shows a heart rate of 76, normal sinus rhythm, normal axis, no obvious ST elevation or depression. Given the above history and physical examination I have a low pretest probability for aortic dissection. Given the initial oxygen room air saturation of 94% with complaints of shortness of breath with chest pain that is sharp, I will obtain a d-dimer. 12/04/16 11:15 Chest x-ray shows normal heart, normal mediastinum, no fractures, normal lung rogers, no pneumothorax. First troponin and d-dimer are unremarkable. Patient is requesting narcotic medications. Patient has been identified in this emergency department as a possible narcotic seeking patient. She has been sent a certified letter stating that we cannot provide pain medications of a narcotic nature. I have offered her ibuprofen or Tylenol for her continued pain. Repeat troponin is pending. 12/04/16 14:08 Repeat troponin as recorded. Patient still has some mild anterior chest wall tenderness. Vital signs are stable. Given the above history, physical examination, d-dimer, 2 unremarkable troponins, I believe it is reasonable to discharge the patient home at this time with expedited cardiology follow-up that I will provide. - Vital Signs Vital signs: Temp Pulse Resp BP Pulse Ox 98.4 F 13 126/88 H 99 12/04/16 10:02 12/04/16 14:02 12/04/16 14:02 12/04/16 14:02 - Laboratory Result Diagrams: 12/04/16 09:55 12/04/16 09:55 Laboratory results interpreted by me: 12/04/16 12/04/16 09:55 09:55 WBC 14.8 H RDW 14.2 H Absolute Neutrophils 11.2 H Carbon Dioxide 17 L Glucose 132 H Discharge - Discharge Clinical Impression: Chest pain Condition: Good Disposition: HOME, SELF-CARE Additional Instructions: Come back immediately with any increased pain, change in location or quality of pain, calf pain, leg swelling, or any other acute problems. Please make sure that you follow-up with cardiology as we have discussed. Referrals: CARLINE SANCHEZ MD [ACTIVE STAFF] - Follow up as needed
[2016-12-04 10:19] LABS: ABSOLUTE BASOPHILS # (AUTO) 0.1 10^3/uL (0.0-0.2); ABSOLUTE EOSINOPHILS # (AUTO) 0.1 10^3/uL (0.0-0.6); ABSOLUTE LYMPHOCYTES (AUTO) 2.5 10^3/uL (0.5-4.7); ABSOLUTE MONOCYTES (AUTO) 0.9 10^3/uL (0.1-1.4); ABSOLUTE NEUT (AUTO) 11.2 10^3/uL (1.7-8.2); BASOPHILS % (AUTO) 0.7 % (0-2); EOSINOPHILS % (AUTO) 0.6 % (0-6); HEMATOCRIT 39.9 % (36.0-47.0); HEMOGLOBIN 13.4 g/dL (12.0-15.5); HGB HCT DIFFERENCE 0.3; LYMPHOCYTES % (AUTO) 16.9 % (13-45); MEAN CORPUSCULAR HEMOGLOBIN 30.9 pg (27.0-33.4); MEAN CORPUSCULAR HGB CONC 33.7 g/dL (32.0-36.0); MEAN CORPUSCULAR VOLUME 92 fl (80-97); MONOCYTES % (AUTO) 6.3 % (3-13); RED BLOOD COUNT 4.34 10^6/uL (3.72-5.28); RED CELL DISTRIBUTION WIDTH 14.2 % (11.5-14.0); SEGMENTED NEUTROPHILS % (AUTO) 75.5 % (42-78); WHITE BLOOD COUNT 14.8 10^3/uL (4.0-10.5)
--- NOTE | 2016-12-04 10:31 | RADIOLOGY REPORT (SQ) ---
EXAM DESCRIPTION: CHEST PA/LAT COMPLETED DATE/TIME: 12/04/2016 10:17 am REASON FOR STUDY: 15, cp COMPARISON: None. EXAM PARAMETERS: NUMBER OF VIEWS: two views TECHNIQUE: Digital Frontal and Lateral radiographic views of the chest acquired. RADIATION DOSE: NA LIMITATIONS: none FINDINGS: LUNGS AND PLEURA: COPD. Mild chronic interstitial changes. Small area of scarring in the right upper lobe. New abnormal density overlying the right apex which could representing overlying artifact. Pneumonia is additional consideration. No effusions. MEDIASTINUM AND HILAR STRUCTURES: No masses or contour abnormalities. HEART AND VASCULAR STRUCTURES: Heart normal size. No evidence for failure. BONES: No acute findings. HARDWARE: None in the chest. OTHER: No other significant finding. IMPRESSION: 1. COPD and chronic interstitial changes. 2. New abnormal density overlying the right apex raising the possibility of pneumonia versus overlyi ng artifact. TECHNICAL DOCUMENTATION: JOB ID: [id number] [employer]- All Rights Reserved
[2016-12-04 10:39] LABS: ANION GAP 18 (5-19); BLOOD UREA NITROGEN 17 mg/dL (7-20); CALCIUM 9.3 mg/dL (8.4-10.2); CARBON DIOXIDE 17 mmol/L (22-30); CHLORIDE 105 mmol/L (98-107); CREATININE RESULT 0.64 mg/dL (0.52-1.25); GLUCOSE 132 mg/dL (75-110); LIPASE 31.7 U/L (23-300); POTASSIUM 3.7 mmol/L (3.6-5.0); SODIUM 140.3 mmol/L (137-145)
[2016-12-04] MEDS ORDERED: ACETAMINOPHEN 325 MG TABLET PO ONE (11:35)
[2016-12-04 14:03] VITALS: BP 126/88
--- NOTE | 2016-12-04 23:56 | EKG REPORT ---
SEVERITY:- NORMAL ECG - SINUS RHYTHM : Confirmed by: Jemima Bhatt 04-Dec-2016 23:55:49
== END 2016-12-04 14:36 | disposition home or self-care (01) ==
LOC: ER 09:50
DX: R07.9 Chest pain, unspecified (principal); R06.02 Shortness of breath; I10 Essential (primary) hypertension; J44.9 Chronic obstructive pulmonary disease, unspecified; F17.200 Nicotine dependence, unspecified, uncomplicated; Z87.19 Personal history of other diseases of the digestive system; Z88.0 Allergy status to penicillin; Z85.118 Personal history of other malignant neoplasm of bronchus and lung
CPT/HCPCS: 36415; 71020; 80048; 83690; 84484; 85025; 85379; 93005; 93010; 99285

== ENCOUNTER 2017-11-27 20:18 | Emergency (ER) | payer SELFPAY ==
[2017-11-27 20:39] VITALS: BP 130/83
[2017-11-27] MEDS ORDERED: OXYCODONE-ACETAMINOPHEN 5-325 MG TABLET PO ONE (20:54)
--- NOTE | 2017-11-27 20:55 | ER Document Report ---
ED Oral Problem - General Mode of Arrival: Ambulatory Information source: Patient TRAVEL OUTSIDE OF THE [place] IN LAST 30 DAYS: No - General Chief Complaint: Toothache Stated Complaint: TOOTH ABSCESS Time Seen by Provider: 11/27/17 20:32 Notes: 46-year-old female who presents to the emergency department today with complaints of dental pain. Patient complains of subjective fevers as well. Patient states she has had dental pain for approximately 10 days. Patient states she has a dentist but she does not have $400 to pay to get her tooth pulled. Patient states she has had multiple dental caries throughout her life and overall bad dentition. Patient states she took 3 amoxicillin this week that she had left over from her previous prescription. (GENEVIEVE CASTAÑEDA) - Related Data Allergies/Adverse Reactions: Penicillins Allergy (Verified 12/04/16 10:16) ketorolac [From Toradol] Adverse Reaction (Verified 12/04/16 10:16) tramadol Adverse Reaction (Verified 12/04/16 10:16) Past Medical History - General Information source: Patient - Social History Smoking Status: Current Every Day Smoker Cigarette use (# per day): Yes Family History: Reviewed & Not Pertinent Patient has suicidal ideation: No Patient has homicidal ideation: No - Past Medical History Cardiac Medical History: Reports: Hx Hypertension Pulmonary Medical History: Reports: Hx COPD, Hx Sleep Apnea Denies: Hx Tuberculosis Neurological Medical History: Reports: Hx Seizures Endocrine Medical History: Denies: Hx Diabetes Mellitus Type 1, Hx Diabetes Mellitus Type 2 Renal/ Medical History: Denies: Hx Peritoneal Dialysis Malignancy Medical History: Reports: Hx Lung Cancer. Denies: Hx Leukemia GI Medical History: Reports: Hx Gastritis - Alcoholic gastritis, Hx Gastroesophageal Reflux Disease, Hx Hepatitis - Alcoholic hepatitis, Hx Irritable Bowel, Hx Pancreatitis. Denies: Hx Crohn's Disease, Hx Hiatal Hernia , Hx Liver Failure, Hx Ulcer Musculoskeletal Medical History: Reports Hx Arthritis, Denies Hx Fibromyalgia, Denies Hx Muscular Dystrophy, Reports Hx Musculoskeletal Deformity, Reports Hx Musculoskeletal Trauma Psychiatric Medical History: Reports: Hx Depression Denies: Hx Bipolar Disorder, Hx Post Traumatic Stress Disorder, Hx Schizophrenia Traumatic Medical History: Reports: Hx Fractures - coccyx Infectious Medical History: Reports: Hx Hepatitis - Alcoholic hepatitis. Denies : Hx HIV Past Surgical History: Reports: Hx Orthopedic Surgery - L ankle, Hx Tubal Ligation. Denies: Hx Appendectomy, Hx Bowel Surgery, Hx Section, Hx Cholecystectomy, Hx Colostomy, Hx Coronary Artery Bypass Graft, Hx Gastric Bypass Surgery, Hx Herniorrhaphy, Hx Hysterectomy, Hx Mastectomy, Hx Pacemaker, Hx Tonsillectomy - Immunizations Immunizations up to date: Yes Hx Diphtheria, Pertussis, Tetanus Vaccination: Yes Hx Pneumococcal Vaccination: 04/12/00 Review of Systems - Review of Systems Constitutional: No symptoms reported EENT: See HPI, Dental problem Cardiovascular: No symptoms reported Respiratory: No symptoms reported Gastrointestinal: No symptoms reported Genitourinary: No symptoms reported Female Genitourinary: No symptoms reported Musculoskeletal: No symptoms reported Skin: No symptoms reported Hematologic/Lymphatic: No symptoms reported Neurological/Psychological: No symptoms reported -: Yes All other systems reviewed and negative Physical Exam - Vital signs Vitals: Temp Pulse Resp BP Pulse Ox 98.9 F 74 16 130/83 H 99 11/27/17 20:37 11/27/17 20:37 11/27/17 20:37 11/27/17 20:37 11/27/17 20:37 - Notes Notes: Physical Exam: General: Alert, appears well. HEENT: Normocephalic. Atraumatic. PERRLA. Extraocular movements intact. Oropharynx clear. Multiple dental caries. Upper left molars are fractured. No erythema, induration, or signs of gingival abscess. Neck: Supple. Respiratory: No respiratory distress. Abdominal: Normal Inspection. No distension. Extremities: Moves all four extremities. Neurological: Normal cognition. AAOx4. Normal speech. Psychological: Normal affect. Normal Mood. Skin: Warm. Dry. Normal color. Multiple dental caries throughout. (GENEVIEVE CASTAÑEDA) Course - Re-evaluation Re-evalutation: 11/27/17 20:56 Patient shows no evidence of gingival abscess has tenderness to soft tissues of upper buccal region on the left. Appears second molar and first molar are the teeth that are causing her pain. Due to timeframe of pain and worsening symptoms with subjective fevers will provide patient clindamycin had provided also dentistry follow-up. Dentistry follow-up was provided on paper sheet. ( AMY MEEHAN) - Vital Signs Vital signs: Temp Pulse Resp BP Pulse Ox 98.9 F 74 16 130/83 H 99 11/27/17 20:37 11/27/17 20:37 11/27/17 20:37 11/27/17 20:37 11/27/17 20:37 Discharge - Discharge Clinical Impression: Tooth pain Condition: Good Disposition: HOME, SELF-CARE Instructions: Clindamycin ([facility]), Toothache ([facility]) Additional Instructions: Please use dentistry she provided her follow-up with your dentist next week for reevaluation. Please take all medications as prescribed Prescriptions: Clindamycin HCl 300 mg PO QID #40 capsule Scribe Attestation: 12/04/17 09:34 I personally performed the services described in the documentation, reviewed and edited the documentation which was dictated to the scribe in my presence, and it accurately records my words and actions. (AMY MEEHAN) Scribe Documentation - Scribe Written by Paul:: Paul Villarreal, 11/27/2017 [id number] acting as scribe for :: Butch
== END 2017-11-27 21:05 | disposition home or self-care (01) ==
LOC: ER 20:18
DX: K02.9 Dental caries, unspecified (principal); K08.89 Other specified disorders of teeth and supporting structures; F17.210 Nicotine dependence, cigarettes, uncomplicated; I10 Essential (primary) hypertension; Z85.118 Personal history of other malignant neoplasm of bronchus and lung; Z88.0 Allergy status to penicillin
CPT/HCPCS: 99282

== ENCOUNTER 2017-12-26 20:17 | Emergency (ER) | payer SELFPAY ==
[2017-12-26 20:31] VITALS: BP 133/79
--- NOTE | 2017-12-27 07:46 | RADIOLOGY REPORT (SQ) ---
EXAM DESCRIPTION: XR ANKLE 3 OR MORE VIEWS, XR FOOT 3 OR MORE VIEWS COMPLETED DATE/TME: 12/27/2017 00:04 CLINICAL HISTORY: 47 years, Female, injury COMPARISON: None. NUMBER OF VIEWS: 6 LIMITATIONS: None. TECHNIQUE: Three views RIGHT foot were obtained in AP, lateral and oblique projections. Three views RIGHT ankle were obtained in AP, lateral and oblique projections. FINDINGS: RIGHT foot: There is no fracture or dislocation. The joint spaces are preserved. No soft tissue abnormalities are seen. Incidentally noted medial bipartite sesamoid. RIGHT ankle: There is no fracture or dislocation. The joint spaces are preserved. No soft tissue abnormalities are seen. IMPRESSION: No acute radiographic abnormality. 2010 [employer]- All Rights Reserved
== END 2017-12-26 22:02 | disposition left against medical advice (07) ==
LOC: ER 20:17
DX: Z53.21 Procedure and treatment not carried out due to patient leaving prior to being seen by health care provider (principal)

== ENCOUNTER 2018-12-02 11:27 | Emergency (ER) | payer SELFPAY ==
[2018-12-02] MEDS ORDERED: ONDANSETRON 4 MG TAB.RAPDIS PO ONE (12:01)
[2018-12-02] MEDS ORDERED: NORMAL SALINE 1000 ML 1,000 ML IV ONE (12:01)
--- NOTE | 2018-12-02 12:04 | ER Document Report ---
ED Medical Screen (RME) - General Chief Complaint: Upper Abdominal Pain Stated Complaint: ABDOMINAL PAIN Time Seen by Provider: 12/02/18 11:56 Mode of Arrival: Ambulatory Information source: Patient Notes: 47-year-old male presents to ED for abdominal pain going around to the back with nausea vomiting and diarrhea. She has a history of pancreatitis since 2010 but 4 weeks ago she told she had acute pancreatitis with her pancreas starting to shut down. She states they told her she would need pancreatic enzymes but she does not have insurance to pay for them. She states the pain has gotten worse and she is vomiting. She states she does continue to smoke cigarettes and marijuana and often has alcohol. Patient is alert oriented respirations regular and unlabored speaking in full sentences. I have greeted and performed a rapid initial assessment of this patient. A comprehensive ED assessment and evaluation of the patient, analysis of test results and completion of medical decision making process will be conducted by an additional ED providers. TRAVEL OUTSIDE OF THE [place] IN LAST 30 DAYS: No - Related Data Allergies/Adverse Reactions: Penicillins Allergy (Verified 12/02/18 11:37) ketorolac [From Toradol] Adverse Reaction (Verified 12/02/18 11:37) tramadol Adverse Reaction (Verified 12/02/18 11:37) Past Medical History - Social History Family history: Reviewed & Not Pertinent - Past Medical History Cardiac Medical History: Reports: Hx Hypertension Pulmonary Medical History: Reports: Hx COPD, Hx Sleep Apnea Denies: Hx Tuberculosis Neurological Medical History: Reports: Hx Seizures Endocrine Medical History: Denies: Hx Diabetes Mellitus Type 1, Hx Diabetes Mellitus Type 2 Renal/ Medical History: Denies: Hx Peritoneal Dialysis Malignancy Medical History: Reports: Hx Lung Cancer. Denies: Hx Leukemia GI Medical History: Reports: Hx Gastritis - Alcoholic gastritis, Hx Gastroesophageal Reflux Disease, Hx Hepatitis - Alcoholic hepatitis, Hx Irritable Bowel, Hx Pancreatitis. Denies: Hx Crohn's Disease, Hx Hiatal Hernia, Hx Liver Failure, Hx Ulcer Musculoskeltal Medical History: Reports Hx Arthritis, Denies Hx Fibromyalgia, Denies Hx Muscular Dystrophy, Reports Hx Musculoskeletal Deformity, Reports Hx Musculoskeletal Trauma Psychiatric Medical History: Reports: Hx Depression Denies: Hx Bipolar Disorder, Hx Post Traumatic Stress Disorder, Hx Schizophrenia Traumatic Medical History: Reports: Hx Fractures - coccyx Infectious Medical History: Reports: Hx Hepatitis - Alcoholic hepatitis. Denies: Hx HIV Past Surgical History: Reports: Hx Orthopedic Surgery - L ankle, Hx Tubal Ligation. Denies: Hx Appendectomy, Hx Bowel Surgery, Hx Section, Hx Cholecystectomy, Hx Colostomy, Hx Coronary Artery Bypass Graft, Hx Gastric Bypass Surgery, Hx Herniorrhaphy, Hx Hysterectomy, Hx Mastectomy, Hx Pacemaker, Hx Tonsillectomy - Immunizations Immunizations up to date: Yes Hx Diphtheria, Pertussis, Tetanus Vaccination: Yes Physical Exam - Vital signs Vitals: Temp Pulse Resp BP Pulse Ox 98.3 F 82 20 117/75 95 12/02/18 11:42 12/02/18 11:42 12/02/18 11:42 12/02/18 11:42 12/02/18 11:42 Course - Vital Signs Vital signs: Temp Pulse Resp BP Pulse Ox 98.3 F 82 20 117/75 95 12/02/18 11:42 12/02/18 11:42 12/02/18 11:42 12/02/18 11:42 12/02/18 11:42
--- NOTE | 2018-12-02 12:42 | ER Document Report ---
ED General - General Chief Complaint: Upper Abdominal Pain Stated Complaint: ABDOMINAL PAIN Time Seen by Provider: 12/02/18 11:56 Primary Care Provider: MOHAMUD SERRA MD [Primary Care Provider] - Follow up as needed Mode of Arrival: Ambulatory TRAVEL OUTSIDE OF THE [place] IN LAST 30 DAYS: No - HPI Notes: 47-year-old female with history of alcohol abuse and pancreatitis to the emergency department with progressively worsening 1 month of upper abdominal pain that radiates in through to her back with associated nausea and vomiting. She states that she has been diagnosed with pancreatitis several times and about 1 month ago she was told that her pancreas was shutting down on her. She states that she is supposed to be on pancreatic enzymes but cannot afford them. She states for the past several days she has been having worsening pain. She states that about 1 month ago she stopped drinking alcohol but got frustrated with her pain yesterday and drank 2-1/2 beers. She states that this morning she woke at 1 AM with worsening pain since drinking the alcohol. She states that she hurts most times when she eats. She also states that she has been vomiting and losing weight. She denies any fevers, chills, diaphoresis, chest pain, shortness of breath. - Related Data Allergies/Adverse Reactions: Penicillins Allergy (Verified 12/02/18 11:37) ketorolac [From Toradol] Adverse Reaction (Verified 12/02/18 11:37) tramadol Adverse Reaction (Verified 12/02/18 11:37) Past Medical History - General Information source: Patient - Social History Smoking Status: Current Every Day Smoker Chew tobacco use (# tins/day): No Frequency of alcohol use: Social Drug Abuse: Marijuana Family History: Reviewed & Not Pertinent Patient has suicidal ideation: No Patient has homicidal ideation: No - Past Medical History Cardiac Medical History: Reports: Hx Hypertension Pulmonary Medical History: Reports: Hx COPD, Hx Sleep Apnea Denies: Hx Tuberculosis Neurological Medical History: Reports: Hx Seizures Endocrine Medical History: Denies: Hx Diabetes Mellitus Type 1, Hx Diabetes Mellitus Type 2 Renal/ Medical History: Denies: Hx Peritoneal Dialysis Malignancy Medical History: Reports: Hx Lung Cancer. Denies: Hx Leukemia GI Medical History: Reports: Hx Gastritis - Alcoholic gastritis, Hx Gastroesophageal Reflux Disease, Hx Hepatitis - Alcoholic hepatitis, Hx Irritable Bowel, Hx Pancreatitis. Denies: Hx Crohn's Disease, Hx Hiatal Hernia, Hx Liver Failure, Hx Ulcer Musculoskeletal Medical History: Reports Hx Arthritis, Denies Hx Fibromyalgia, Denies Hx Muscular Dystrophy, Reports Hx Musculoskeletal Deformity, Reports Hx Musculoskeletal Trauma Psychiatric Medical History: Reports: Hx Depression Denies: Hx Bipolar Disorder, Hx Post Traumatic Stress Disorder, Hx Schizophrenia Traumatic Medical History: Reports: Hx Fractures - coccyx Infectious Medical History: Reports: Hx Hepatitis - Alcoholic hepatitis. Denies: Hx HIV Past Surgical History: Reports: Hx Orthopedic Surgery - L ankle, Hx Tubal Ligation. Denies: Hx Appendectomy, Hx Bowel Surgery, Hx Section, Hx Cholecystectomy, Hx Colostomy, Hx Coronary Artery Bypass Graft, Hx Gastric Bypass Surgery, Hx Herniorrhaphy, Hx Hysterectomy, Hx Mastectomy, Hx Pacemaker, Hx Tonsillectomy - Immunizations Immunizations up to date: Yes Hx Diphtheria, Pertussis, Tetanus Vaccination: Yes Hx Pneumococcal Vaccination: 04/12/00 Review of Systems - Review of Systems Constitutional: Malaise, Weakness. denies: Chills, Fever EENT: No symptoms reported Cardiovascular: denies: Chest pain, Palpitations, Heart racing, Dyspnea, Syncope, Dizziness, Lightheaded Respiratory: denies: Cough, Short of breath Gastrointestinal: Abdominal pain, Nausea, Vomiting. denies: Diarrhea Genitourinary: No symptoms reported Musculoskeletal: No symptoms reported Skin: No symptoms reported Neurological/Psychological: No symptoms reported -: Yes All other systems reviewed and negative Physical Exam - Vital signs Vitals: Temp Pulse Resp BP Pulse Ox 98.3 F 82 20 117/75 95 12/02/18 11:42 12/02/18 11:42 12/02/18 11:42 12/02/18 11:42 12/02/18 11:42 Interpretation: Normal - General General appearance: Appears well, Alert In distress: None - HEENT Head: Normocephalic, Atraumatic Eyes: Normal Pupils: PERRL - Respiratory Respiratory status: No respiratory distress Chest status: Nontender Breath sounds: Normal Chest palpation: Normal - Cardiovascular Rhythm: Regular Heart sounds: Normal auscultation Murmur: No - Abdominal Inspection: Normal Distension: No distension Bowel sounds: Normal Tenderness: Tender - Positive tenderness to palpation to the epigastrium, right upper quadrant. Negative Edouard sign. Negative for any peritoneal signs. Negative McBurney's point and negative Rovsing's. No CVA tenderness bilaterally Organomegaly: No organomegaly - Back Back: Normal, Nontender - Neurological Neuro grossly intact: Yes Cognition: Normal Orientation: AAOx4 Shiva Coma Scale Eye Opening: Spontaneous Shiva Coma Scale Verbal: Oriented Shiva Coma Scale Motor: Obeys Commands Shiva Coma Scale Total: 15 Speech: Normal Motor strength normal: LUE, RUE, LLE, RLE Sensory: Normal - Psychological Associated symptoms: Normal affect, Normal mood - Skin Skin Temperature: Warm Skin Moisture: Dry Skin Color: Normal Course - Re-evaluation Re-evalutation: Rounded patient and her pain is better. We discussed her lab findings as well as her CT findings. She has been tolerating p.o. fluids have ice and cranberry juice. She has not been vomiting since arrival. She does not have a fever. Her LFTs are reassuring. She does have a little elevated sugar. I have discussed with her the importance of following up with a GI specialist and she agrees. She would like names for several GI specialist that she can contact and try to see. I have encouraged her to return if she has any fevers, yellowing of her skin, chest pain, shortness of breath, intractable vomiting, intractable pain. We will send home with a small amount of pain medicines and Zofran. She agrees with the plan. - Vital Signs Vital signs: Temp Pulse Resp BP Pulse Ox 97.8 F 61 18 126/83 H 98 12/02/18 14:44 12/02/18 14:44 12/02/18 14:44 12/02/18 14:44 12/02/18 14:44 - Laboratory Result Diagrams: 12/02/18 12:33 12/02/18 12:33 Laboratory results interpreted by me: 12/02/18 12/02/18 12:33 12:33 WBC 11.0 H Creatinine 0.50 L Glucose 231 H Total Protein 8.3 H Lipase 13.5 L Discharge - Discharge Clinical Impression: Epigastric abdominal pain Chronic pancreatitis Qualifiers: Pancreatitis type: alcohol induced Qualified Code(s): K86.0 - Alcohol-induced chronic pancreatitis Condition: Stable Disposition: HOME, SELF-CARE Instructions: Pancreatitis ([facility]) Additional Instructions: CLEAR LIQUIDS FOR THE NEXT 24-48 HOURS. NO ALCOHOL. FOLLOW UP WITH GI SPECIALIST. FOLLOW WITH PRIMARY CARE. RETURN IF WORSENING PAIN, INTRACTABLE VOMITING, BLOODY VOMITING, FEVERS, OR ANY OTHER CONCERNS. [facility] [phone] [id number], [place], [place] Prescriptions: Ondansetron [Zofran Odt 4 mg Tablet] 1 - 2 tab PO Q4HP PRN #10 tab.rapdis PRN Reason: Oxycodone HCl/Acetaminophen [Percocet 7.5-325 mg Tablet] 1 each PO Q4H #12 tablet Referrals: MOHAMUD SERRA MD [Primary Care Provider] - Follow up in 1 week STEVEN NOLAND MD [ACTIVE STAFF] - Follow up in 1 week (for GI follow up)
[2018-12-02 12:54] LABS: ABSOLUTE BASOPHILS # (AUTO) 0.1 10^3/uL (0.0-0.2); ABSOLUTE EOSINOPHILS # (AUTO) 0.1 10^3/uL (0.0-0.6); ABSOLUTE LYMPHOCYTES (AUTO) 3.8 10^3/uL (0.5-4.7); ABSOLUTE MONOCYTES (AUTO) 0.6 10^3/uL (0.1-1.4); ABSOLUTE NEUT (AUTO) 6.3 10^3/uL (1.7-8.2); BASOPHILS % (AUTO) 1.2 % (0-2); EOSINOPHILS % (AUTO) 1.3 % (0-6); HEMATOCRIT 44.9 % (36.0-47.0); HEMOGLOBIN 15.1 g/dL (12.0-15.5); LYMPHOCYTES % (AUTO) 34.9 % (13-45); MEAN CORPUSCULAR HEMOGLOBIN 31.7 pg (27.0-33.4); MEAN CORPUSCULAR HGB CONC 33.7 g/dL (32.0-36.0); MEAN CORPUSCULAR VOLUME 94 fl (80-97); PLATELET COUNT 416 10^3/uL (150-450); RED BLOOD COUNT 4.77 10^6/uL (3.72-5.28); RED CELL DISTRIBUTION WIDTH 12.4 % (11.5-14.0); SEGMENTED NEUTROPHILS % (AUTO) 57.6 % (42-78); TOTAL CELLS COUNTED % (AUTO) 100 %
[2018-12-02] MEDS ORDERED: MORPHINE SULFATE 10 MG/ML INJ IV ONE ×3 (13:13→17:30)
[2018-12-02 13:15] LABS: ALBUMIN 4.8 g/dL (3.5-5.0); ALKALINE PHOSPHATASE 81 U/L (38-126); ANION GAP 14 (5-19); ASPARTATE AMINO TRANSFERASE 33 U/L (14-36); BILIRUBIN,DIRECT 0.3 mg/dL (0.0-0.4); BILIRUBIN,TOTAL 0.3 mg/dL (0.2-1.3); BLOOD UREA NITROGEN 9 mg/dL (7-20); CALCIUM 9.4 mg/dL (8.4-10.2); CARBON DIOXIDE 24 mmol/L (22-30); CHLORIDE 101 mmol/L (98-107); CREATINE KINASE 50 U/L (30-135); GLUCOSE 231 mg/dL (75-110); POTASSIUM 4.1 mmol/L (3.6-5.0); TOTAL PROTEIN 8.3 g/dL (6.3-8.2)
[2018-12-02 14:32] LABS: APPEARANCE,URINE CLEAR; BILIRUBIN,URINE NEGATIVE (NEGATIVE); COLOR,URINE YELLOW; GLUCOSE, URINE NEGATIVE (NEGATIVE); KETONES,URINE NEGATIVE (NEGATIVE); LEUKOCYTE ESTERASE,URINE NEGATIVE (NEGATIVE); NITRITE,URINE NEGATIVE (NEGATIVE); PROTEIN,URINE NEGATIVE (NEGATIVE); URINE SPECIFIC GRAVITY 1.015; UROBILINOGEN,URINE NEGATIVE mg/dL (<2.0)
[2018-12-02 14:40] LABS: URINE AMPHETAMINES SCREEN NEGATIVE; URINE BARBITURATES SCREEN NEGATIVE; URINE BENZODIAZEPINES SCREEN NEGATIVE; URINE COCAINE SCREEN NEGATIVE; URINE MARIJUANA (THC) SCREEN UNCONFIRMED POSITIVE; URINE METHADONE SCREEN NEGATIVE; URINE PHENCYCLIDINE SCREEN NEGATIVE
[2018-12-02] MEDS ORDERED: PANTOPRAZOLE SODIUM 40 MG VIAL IV ONE (17:30)
[2018-12-02] MEDS ORDERED: ONDANSETRON HCL INJ/PF 4 MG/2 ML SDV IV ONE (17:30)
[2018-12-02] MEDS ORDERED: HYDROMORPHONE HCL INJ/PF 2 MG/ML AMPULE IV ONE ×2 (17:38→19:33)
--- NOTE | 2018-12-02 18:54 | RADIOLOGY REPORT (SQ) ---
EXAM DESCRIPTION: CT ABD/PELVIS WITH IV ORAL COMPLETED DATE/TIME: 12/02/2018 6:26 pm REASON FOR STUDY: abd pain, vomiting, weight loss COMPARISON: 12/31/2013 TECHNIQUE: CT scan of the abdomen and pelvis performed using helical scanning technique with dynamic intravenous contrast injection. No oral contrast. Images reviewed with lung, soft tissue, and bone w indows. Reconstructed coronal and sagittal MPR images reviewed. Delayed images for evaluation of the urinary system also acquired. All images stored on PACS. All CT scanners at this facility use dose modulation, iterative reconstruction, and/or weight based d osing when appropriate to reduce radiation dose to as low as reasonably achievable (ALARA). [facility]: Dose Right [facility]: CareDose [facility]: Dose Right [facility]: Teradose 4D [facility]: Silenseed CONTRAST TYPE AND DOSE: contrast/concentration: Isovue 350.00 mg/ml; Total Contrast Delivered: 46.0 ml; Total Saline Delivered: 65.0 ml RENAL FUNCTION: GFR > 60. RADIATION DOSE: CT Rad equipment meets quality standard of care and radiation dose reduction techniq ues were employed. CTDIvol: 2.4 - 3.4 mGy. DLP: 382 mGy-cm.. LIMITATIONS: None. FINDINGS: LOWER CHEST: Scattered centrilobular emphysema. LIVER: Similar hepatomegaly. No enhancing masses. No dilated ducts. SPLEEN: Normal size. No focal lesions. PANCREAS: Heavy pancreatic parenchymal calcifications. No adjacent inflammation or peripancreatic flu id collections. Pancreatic duct mildly dilated. GALLBLADDER: No calcified stones. No inflammatory changes to suggest cholecystitis. ADRENAL GLANDS: No significant masses. RIGHT KIDNEY AND URETER: No cysts identified. No solid masses identified. No calcified stones. No hyd ronephrosis or hydroureter. LEFT KIDNEY AND URETER: No cysts identified. No solid masses identified. No calcified stones. No hydr onephrosis or hydroureter. AORTA AND VESSELS: No aneurysm. No dissection. Renal arteries, SMA, celiac without significant stenos is. RETROPERITONEUM: No bulky retroperitoneal adenopathy. BOWEL AND PERITONEAL CAVITY: No obstruction or inflammatory changes. No free fluid. APPENDIX: Normal. PELVIS: No free fluid. Unremarkable bladder. ABDOMINAL WALL: No masses. No hernias. BONES: No acute findings. OTHER: No other significant finding. IMPRESSION: No acute inflammatory changes. Similar hepatomegaly. Heavy pancreatic parenchymal calcifications consistent with chronic pancreatitis. No peripancreatic f luid collections. TECHNICAL DOCUMENTATION: JOB ID: [id number] Quality ID # [id number]: Final reports with documentation of one or more dose reduction techniques (e.g., Au tomated exposure control, adjustment of the mA and/or kV according to patient size, use of iterative reconstruction technique) 2010 [employer]- All Rights Reserved Reading location - IP/workstation name: [email or web address]
[2018-12-02 19:52] VITALS: BP 133/82
== END 2018-12-02 20:15 | disposition home or self-care (01) ==
LOC: ER 11:27
DX: K86.0 Alcohol-induced chronic pancreatitis (principal); R10.13 Epigastric pain; R10.10 Upper abdominal pain, unspecified; M54.9 Dorsalgia, unspecified; R11.2 Nausea with vomiting, unspecified; R63.4 Abnormal weight loss; R53.81 Other malaise; R53.1 Weakness; F17.200 Nicotine dependence, unspecified, uncomplicated; I10 Essential (primary) hypertension; J44.9 Chronic obstructive pulmonary disease, unspecified
CPT/HCPCS: 96376; 99284; 96361; 96374; 96375; 36415; 82550; 84702; 83690; 85025; 80053; 81001; 80307; 74177; S0119; J2270; J1170; S0164; J2405; J7030

== ENCOUNTER 2019-03-03 12:00 | Emergency (ER) | payer SELFPAY ==
[2019-03-03] MEDS ORDERED: ACETAMINOPHEN 325 MG TABLET PO ONE (12:22)
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
[2019-03-03 13:34] VITALS: BP 99/63
== END 2019-03-03 13:35 | disposition home or self-care (01) ==
LOC: ER 12:00
DX: M79.672 Pain in left foot (principal); M79.645 Pain in left finger(s); Y04.2XXA Assault by strike against or bumped into by another person, initial encounter; Y93.89 Activity, other specified; F17.200 Nicotine dependence, unspecified, uncomplicated; I10 Essential (primary) hypertension; Z98.890 Other specified postprocedural states; J44.9 Chronic obstructive pulmonary disease, unspecified
CPT/HCPCS: 99284

== ENCOUNTER 2019-08-22 17:39 | Emergency (ER) | payer SELFPAY ==
[2019-08-22] MEDS ORDERED: ONDANSETRON HCL INJ/PF 4 MG/2 ML SDV IV ONE (18:13)
--- NOTE | 2019-08-22 18:15 | ER Document Report ---
ED Medical Screen (RME) - General Chief Complaint: Wrist Pain Stated Complaint: FALL/WRIST PAIN Time Seen by Provider: 08/22/19 18:09 Primary Care Provider: MOHAMUD SERRA MD [Primary Care Provider] - Follow up as needed Mode of Arrival: Wheelchair Information source: Patient Notes: 48-year-old female with history of chronic alcoholism pancreatitis presents with epigastric abdominal pain and right wrist pain. Reports she fell last week and this week hurting her right wrist and right knee.. Reports she has only had approximately 3 beers today. Reports she usually drinks at least 6 beers a day. Complains of nausea, diarrhea. No fevers. I have greeted and performed a rapid initial assessment of this patient. A comprehensive ED assessment and evaluation of the patient, analysis of test results and completion of the medical decision making process will be conducted by additional ED providers. TRAVEL OUTSIDE OF THE [place] IN LAST 30 DAYS: No - Related Data Allergies/Adverse Reactions: haloperidol [From Haldol] Allergy (Verified 08/22/19 18:11) Penicillins Allergy (Verified 12/02/18 11:37) ketorolac [From Toradol] Adverse Reaction (Verified 12/02/18 11:37) tramadol Adverse Reaction (Verified 12/02/18 11:37) Past Medical History - Social History Family history: Reviewed & Not Pertinent - Past Medical History Cardiac Medical History: Reports: Hx Hypertension Pulmonary Medical History: Reports: Hx COPD, Hx Sleep Apnea Denies: Hx Tuberculosis Neurological Medical History: Reports: Hx Seizures Endocrine Medical History: Denies: Hx Diabetes Mellitus Type 1, Hx Diabetes Mellitus Type 2 Renal/ Medical History: Denies: Hx Peritoneal Dialysis Malignancy Medical History: Reports: Hx Lung Cancer. Denies: Hx Leukemia GI Medical History: Reports: Hx Gastritis - Alcoholic gastritis, Hx Gastroesophageal Reflux Disease, Hx Hepatitis - Alcoholic hepatitis, Hx Irritable Bowel, Hx Pancreatitis. Denies: Hx Crohn's Disease, Hx Hiatal Hernia, Hx Liver Failure, Hx Ulcer Musculoskeltal Medical History: Reports Hx Arthritis, Denies Hx Fibromyalgia, Denies Hx Muscular Dystrophy, Reports Hx Musculoskeletal Deformity, Reports Hx Musculoskeletal Trauma Psychiatric Medical History: Reports: Hx Depression Denies: Hx Bipolar Disorder, Hx Post Traumatic Stress Disorder, Hx Schizophrenia Traumatic Medical History: Reports: Hx Fractures - coccyx Infectious Medical History: Reports: Hx Hepatitis - Alcoholic hepatitis. Denies: Hx HIV Past Surgical History: Reports: Hx Orthopedic Surgery - L ankle, Hx Tubal Ligation. Denies: Hx Appendectomy, Hx Bowel Surgery, Hx Section, Hx Cholecystectomy, Hx Colostomy, Hx Coronary Artery Bypass Graft, Hx Gastric Bypass Surgery, Hx Herniorrhaphy, Hx Hysterectomy, Hx Mastectomy, Hx Pacemaker, Hx Tonsillectomy - Immunizations Immunizations up to date: Yes Hx Diphtheria, Pertussis, Tetanus Vaccination: Yes Physical Exam - Vital signs Vitals: Temp Pulse Resp BP Pulse Ox 98.3 F 78 20 122/82 96 08/22/19 17:47 08/22/19 17:47 08/22/19 17:47 08/22/19 17:47 08/22/19 17:47 Course - Vital Signs Vital signs: Temp Pulse Resp BP Pulse Ox 98.3 F 78 20 122/82 96 08/22/19 18:09 08/22/19 17:47 08/22/19 17:47 08/22/19 17:47 08/22/19 17:47 Doctor's Discharge - Discharge Referrals: MOHAMUD SERRA MD [Primary Care Provider] - Follow up as needed
[2019-08-22 18:38] LABS: ABSOLUTE BASOPHILS # (AUTO) 0.1 10^3/uL (0.0-0.2); ABSOLUTE EOSINOPHILS # (AUTO) 0.2 10^3/uL (0.0-0.6); ABSOLUTE LYMPHOCYTES (AUTO) 3.2 10^3/uL (0.5-4.7); ABSOLUTE MONOCYTES (AUTO) 0.4 10^3/uL (0.1-1.4); BASOPHILS % (AUTO) 1.3 % (0-2); EOSINOPHILS % (AUTO) 2.4 % (0-6); HEMOGLOBIN 13.6 g/dL (12.0-15.5); MEAN CORPUSCULAR HEMOGLOBIN 32.7 pg (27.0-33.4); MEAN CORPUSCULAR HGB CONC 34.9 g/dL (32.0-36.0); MEAN CORPUSCULAR VOLUME 94 fl (80-97); MONOCYTES % (AUTO) 6.1 % (3-13); PLATELET COUNT 299 10^3/uL (150-450); RED BLOOD COUNT 4.17 10^6/uL (3.72-5.28); RED CELL DISTRIBUTION WIDTH 15.9 % (11.5-14.0); SEGMENTED NEUTROPHILS % (AUTO) 43.2 % (42-78); TOTAL CELLS COUNTED % (AUTO) 100 %; WHITE BLOOD COUNT 6.8 10^3/uL (4.0-10.5)
--- NOTE | 2019-08-22 18:57 | RADIOLOGY REPORT (SQ) ---
EXAM DESCRIPTION: WRIST RIGHT 3 VIEWS IMAGES COMPLETED DATE/TIME: 08/22/2019 5:41 pm REASON FOR STUDY: fall pain COMPARISON: None. NUMBER OF VIEWS: Three views. TECHNIQUE: AP, lateral, and oblique radiographic images acquired of the right wrist. LIMITATIONS: None. FINDINGS: MINERALIZATION: Osteopenia. BONES: No acute fracture or dislocation. No worrisome bone lesions. Normal alignment. SOFT TISSUES: Dorsal soft tissue swelling. No radiopaque foreign body. OTHER: No other significant finding. IMPRESSION: No acute fracture or dislocation of the right wrist. Dorsal soft tissue swelling. TECHNICAL DOCUMENTATION: JOB ID: [id number] [employer]- All Rights Reserved Reading location - IP/workstation name: [email or web address]
[2019-08-22 19:10] LABS: ALBUMIN 4.3 g/dL (3.5-5.0); ALKALINE PHOSPHATASE 258 U/L (38-126); AMYLASE 72 U/L (30-110); ANION GAP 9 (5-19); ASPARTATE AMINO TRANSFERASE 506 U/L (14-36); BILIRUBIN,DIRECT 0.1 mg/dL (0.0-0.4); BILIRUBIN,TOTAL 0.4 mg/dL (0.2-1.3); BLOOD UREA NITROGEN 4 mg/dL (7-20); CALCIUM 8.7 mg/dL (8.4-10.2); CARBON DIOXIDE 30 mmol/L (22-30); CHLORIDE 96 mmol/L (98-107); GLUCOSE 153 mg/dL (75-110); POTASSIUM 4.6 mmol/L (3.6-5.0); TOTAL PROTEIN 8.3 g/dL (6.3-8.2)
[2019-08-22 19:27] LABS: ALCOHOL 377 mg/dL (NONE DETECTED)
[2019-08-22] MEDS ORDERED: MORPHINE SULFATE 10 MG/ML INJ IV ONE (20:56)
[2019-08-22] MEDS ORDERED: NORMAL SALINE 1000 ML 1,000 ML IV ONE (20:56)
--- NOTE | 2019-08-22 20:59 | ER Document Report ---
ED General - General Chief Complaint: Abdominal Pain Stated Complaint: FALL/WRIST PAIN Time Seen by Provider: 08/22/19 18:09 Primary Care Provider: MOHAMUD SERRA MD [Primary Care Provider] - Follow up as needed Mode of Arrival: Wheelchair Information source: Patient TRAVEL OUTSIDE OF THE [place] IN LAST 30 DAYS: No - HPI Notes: Patient arrives complaining of abdominal pain. She states that she drinks alcohol daily and has had problems with pancreatitis in the past. She states she has diffuse severe abdominal pain. Is worse with movement and better with rest. It is mainly in the epigastric area and radiates to the back. It is burning and sharp in nature. She also states that last week she fell and she has been having persistent right wrist pain since that time. She has had some vomiting. No diarrhea. She states that she and her have been trying to contact a alcohol treatment facility and she plans to go there when she is discharged. - Related Data Allergies/Adverse Reactions: haloperidol [From Haldol] Allergy (Verified 08/22/19 18:11) Penicillins Allergy (Verified 12/02/18 11:37) ketorolac [From Toradol] Adverse Reaction (Verified 12/02/18 11:37) tramadol Adverse Reaction (Verified 12/02/18 11:37) Past Medical History - General Information source: Patient - Social History Smoking Status: Current Every Day Smoker Chew tobacco use (# tins/day): No Frequency of alcohol use: Heavy Drug Abuse: Marijuana Family History: Reviewed & Not Pertinent Patient has homicidal ideation: No - Past Medical History Cardiac Medical History: Reports: Hx Hypertension Pulmonary Medical History: Reports: Hx COPD, Hx Sleep Apnea Denies: Hx Tuberculosis Neurological Medical History: Reports: Hx Seizures Endocrine Medical History: Denies: Hx Diabetes Mellitus Type 1, Hx Diabetes Mellitus Type 2 Renal/ Medical History: Denies: Hx Peritoneal Dialysis Malignancy Medical History: Reports: Hx Lung Cancer. Denies: Hx Leukemia GI Medical History: Reports: Hx Gastritis - Alcoholic gastritis, Hx Gastroesophageal Reflux Disease, Hx Hepatitis - Alcoholic hepatitis, Hx Irritable Bowel, Hx Pancreatitis. Denies: Hx Crohn's Disease, Hx Hiatal Hernia, Hx Liver Failure, Hx Ulcer Musculoskeletal Medical History: Reports Hx Arthritis, Denies Hx Fibromyalgia, Denies Hx Muscular Dystrophy, Reports Hx Musculoskeletal Deformity, Reports Hx Musculoskeletal Trauma Psychiatric Medical History: Reports: Hx Depression Denies: Hx Bipolar Disorder, Hx Post Traumatic Stress Disorder, Hx Schizophrenia Traumatic Medical History: Reports: Hx Fractures - coccyx Infectious Medical History: Reports: Hx Hepatitis - Alcoholic hepatitis. Denies: Hx HIV Past Surgical History: Reports: Hx Orthopedic Surgery - L ankle, Hx Tubal Li gation. Denies: Hx Appendectomy, Hx Bowel Surgery, Hx Section, Hx Cholecystectomy, Hx Colostomy, Hx Coronary Artery Bypass Graft, Hx Gastric Bypass Surgery, Hx Herniorrhaphy, Hx Hysterectomy, Hx Mastectomy, Hx Pacemaker, Hx Tonsillectomy - Immunizations Immunizations up to date: Yes Hx Diphtheria, Pertussis, Tetanus Vaccination: Yes Hx Pneumococcal Vaccination: 04/12/00 Review of Systems - Review of Systems Constitutional: Malaise, Weakness. denies: Chills, Fever Cardiovascular: denies: Chest pain, Palpitations Respiratory: denies: Cough, Short of breath -: Yes All other systems reviewed and negative Physical Exam - Vital signs Vitals: Temp Pulse Resp BP Pulse Ox 98.3 F 78 20 122/82 96 08/22/19 17:47 08/22/19 17:47 08/22/19 17:47 08/22/19 17:47 08/22/19 17:47 Interpretation: Normal - General General appearance: Appears well, Alert - HEENT Head: Normocephalic, Atraumatic Eyes: Normal Pupils: PERRL - Respiratory Respiratory status: No respiratory distress Chest status: Nontender Breath sounds: Normal Chest palpation: Normal - Cardiovascular Rhythm: Regular Heart sounds: Normal auscultation Murmur: No - Abdominal Inspection: Normal Distension: No distension Bowel sounds: Hypoactive Tenderness: Tender - Diffuse tenderness to palpation no rebound or guarding Organomegaly: No organomegaly - Back Back: Normal, Nontender - Extremities General upper extremity: Normal inspection, Nontender, Normal color, Normal ROM, Normal temperature General lower extremity: Normal inspection, Nontender, Normal color, Normal ROM, Normal temperature, Normal weight bearing. No: Josefa's sign - Neurological Neuro grossly intact: Yes Cognition: Normal Orientation: AAOx4 Shiva Coma Scale Eye Opening: Spontaneous [place] Coma Scale Verbal: Oriented [place] Coma Scale Motor: Obeys Commands Shiva Coma Scale Total: 15 Speech: Normal Motor strength normal: LUE, RUE, LLE, RLE Sensory: Normal - Psychological Associated symptoms: Normal affect, Normal mood - Skin Skin Temperature: Warm Skin Moisture: Dry Skin Color: Normal Course - Re-evaluation Re-evalutation: 08/22/19 22:23 Patient was turned over to Dr. Sanchez at approximately 10 PM. She will follow-up on results of CT scan and ultrasound to determine disposition. - Vital Signs Vital signs: Temp Pulse Resp BP Pulse Ox 98.3 F 78 20 122/82 96 08/22/19 18:09 08/22/19 17:47 08/22/19 17:47 08/22/19 17:47 08/22/19 17:47 - Laboratory Result Diagrams: 08/22/19 18:20 08/22/19 18:20 Laboratory results interpreted by me: 08/22/19 08/22/19 18:20 18:20 RDW 15.9 H Lymph % (Auto) 47.0 H Sodium 135.0 L Chloride 96 L BUN 4 L Creatinine 0.37 L Glucose 153 H AST 506 H ALT 234 H Alkaline Phosphatase 258 H Total Protein 8.3 H Lipase 17.4 L Serum Alcohol 377 H* Discharge - Discharge Clinical Impression: Epigastric pain, Elevated LFTs, Alcohol abuse, History of acute alcoholic hepatitis, Tobacco abuse Condition: Stable Disposition: OTHER Referrals: MOHAMUD SERRA MD [Primary Care Provider] - Follow up as needed
--- NOTE | 2019-08-22 22:05 | RADIOLOGY REPORT (SQ) ---
CT ABDOMEN PELVIS WITHOUT IV CONTRAST EXAM DATE: 08/22/2019 8:55 PM CDT HISTORY: Upper abdominal pain. History of chronic pancreatitis. COMPARISON: 12/02/2018 TECHNIQUE: CT scan of the abdomen and pelvis was performed without IV contrast. This exam was performed according to our departmental dose-optimization program, which includes automated exposure control, adjustment of the mA and/or kV according to patient size and/or use of iterative reconstruction technique. FINDINGS: The lung bases are clear with diffuse emphysematous changes. No pleural or pericardial effusion. No hiatal hernia. There is hepatic steatosis. There are coarse calcifications scattered throughout the pancreas but without evidence of inflammatory changes or pseudocyst. The gallbladder, spleen, adrenal glands, and kidneys are normal. No hydronephrosis or urinary stones. Unremarkable pelvic organs. The stomach and duodenum are unremarkable. No small bowel obstruction. The appendix is not visualized. No evidence of acute diverticulitis. No adenopathy, free fluid, or free air is identified. The aorta is normal caliber and contains atherosclerotic calcifications. No acute bony findings are seen. There is no abnormal body wall hernia. IMPRESSION: 1. Sequela of chronic pancreatitis without acute inflammatory changes. Please correlate with lab values. 2. Diffuse hepatic steatosis; please correlate with liver function tests to exclude steatohepatitis.
[2019-08-22 23:01] LABS: URINE AMPHETAMINES SCREEN NEGATIVE; URINE BARBITURATES SCREEN NEGATIVE; URINE BENZODIAZEPINES SCREEN NEGATIVE; URINE COCAINE SCREEN NEGATIVE; URINE MARIJUANA (THC) SCREEN NEGATIVE; URINE METHADONE SCREEN NEGATIVE; URINE PHENCYCLIDINE SCREEN NEGATIVE
[2019-08-22 23:08] LABS: ADD MANUAL MICROSCOPIC YES; APPEARANCE,URINE CLEAR; BILIRUBIN,URINE NEGATIVE (NEGATIVE); COLOR,URINE YELLOW; GLUCOSE, URINE NEGATIVE (NEGATIVE); KETONES,URINE NEGATIVE (NEGATIVE); LEUKOCYTE ESTERASE,URINE NEGATIVE (NEGATIVE); NITRITE,URINE NEGATIVE (NEGATIVE); PROTEIN,URINE NEGATIVE (NEGATIVE); URINE SPECIFIC GRAVITY 1.008; UROBILINOGEN,URINE NEGATIVE mg/dL (<2.0)
[2019-08-22 23:09] LABS: YEAST,URINE PRESENT
--- NOTE | 2019-08-23 00:20 | RADIOLOGY REPORT (SQ) ---
Ultrasound of the right upper quadrant of the abdomen: 08/22/2019 11:18 PM CDT Technique: Multiple grayscale color Doppler images of the right upper quadrant of the abdomen were obtained. Comparison: CT of abdomen and pelvis from 08/22/2019 History: 48-year old patient with right upper quadrant abdominal pain. Findings: The visualized portions of the hepatic parenchyma appear diffusely echogenic. There is no evidence to suggest intra or extrahepatic ductal dilatation. There is normal directional flow seen within the main portal vein. There is no evidence of pericholecystic fluid, gallbladder wall thickening, or cholelithiasis. The common duct measures 8-9 mm. The right kidney measures up to 9.9 cm in length. The right kidney demonstrates normal cortical echogenicity with no evidence to suggest hydronephrosis. The visualized portions of the IVC, abdominal aorta, and pancreatic head appear normal. No free intraperitoneal fluid is seen. Impression: w 1. No cholelithiasis is seen. The common duct is within normal limits of size. 2. Hepatic steatosis
[2019-08-23] MEDS ORDERED: ACETAMINOPHEN WITH CODEINE #3 TABLET PO ONE (01:55)
--- NOTE | 2019-08-23 02:31 | ER Document Report ---
Doctor's Note Notes: 08/23/19 02:30 Patient turned over to me pending results of CT and right upper quadrant ultrasounds. Findings of chronic pancreatitis without any acute etiology also hepatic steatosis. Discussed with patient who is aware of these diagnoses and aware of her abnormal liver enzymes which she has previously presented with. Patient appropriate for discharge to follow-up with rehab, GI, and her PCP, and patient is in agreement with this plan. Patient having some epigastric pain from the chronic pancreatitis, order the Tylenol 3 which patient agreed to.
[2019-08-23 02:47] VITALS: BP 128/72
== END 2019-08-23 02:51 | disposition other institution (70) ==
LOC: ER 17:39
DX: R10.13 Epigastric pain (principal); F10.10 Alcohol abuse, uncomplicated; R79.89 Other specified abnormal findings of blood chemistry; M25.531 Pain in right wrist; R53.81 Other malaise; R53.1 Weakness; R10.9 Unspecified abdominal pain; M54.9 Dorsalgia, unspecified; W19.XXXA Unspecified fall, initial encounter; Z88.0 Allergy status to penicillin; Z88.8 Allergy status to other drugs, medicaments and biological substances; F17.200 Nicotine dependence, unspecified, uncomplicated; I10 Essential (primary) hypertension; J44.9 Chronic obstructive pulmonary disease, unspecified
CPT/HCPCS: 99284; 96361; 96374; 96375; 36415; 80307 ×2; 82150; 83690; 85025; 80053; 81001; 73110; 76705; 74176; J2270; J2405; J7030

== ENCOUNTER 2020-01-23 04:55 | Emergency (ER) | payer SELFPAY ==
[2020-01-23] MEDS ORDERED: ACETAMINOPHEN 325 MG TABLET PO ONE (05:46)
--- NOTE | 2020-01-23 07:53 | RADIOLOGY REPORT (SQ) ---
CLINICAL HISTORY: fall, pain COMPARISON: None. TECHNIQUE: XR RIBS UNILATERAL WITH CHEST 01/23/2020 5:57 AM CDT FINDINGS: Cardiac silhouette is normal in size. Lungs are clear without consolidation, atelectasis, mass or edema. There is no pleural effusion. There is no pneumothorax. There is a questionable fracture of the anterior left eighth rib. IMPRESSION: Questionable left eighth rib fracture.
[2020-01-23 10:50] VITALS: BP 132/74
[2020-01-23] MEDS ORDERED: HYDROCODONE/ACETAMINOPHEN 5-325 MG TABLET PO ONE (10:50)
[2020-01-23] MEDS ORDERED: HYDROCODONE/ACETAMINOPHEN 5-325 MG (6 TAB/ER DISP) PO PRN (10:50)
--- NOTE | 2020-01-23 10:56 | ER Document Report ---
HPI - HPI Time Seen by Provider: 01/23/20 10:42 Pain Level: 5 Notes: 49-year-old female presents to the emergency room via EMS for left rib pain after she fell on an old TV while she was walking to the bathroom at 3:00 this morning. Reports she is having pain to the left middle part of her rib. Denies head trauma or change in level consciousness. Patient was given fentanyl in route to the hospital, patient did wait in triage for a while, her initial blood pressure was low however on reevaluation her blood pressures in the 130s over 80s. Patient reports pain is 4 out of 5, sharp and achy. Denies any prior history of rib fractures. Denies any other area of injury. Denies fevers, chills, chest pain,palpitations, shortness of breath, dyspnea, nausea, vomiting, diarrhea, abdominal pain, hematuria,blurred vision, double vision, loss of vision, speech changes, LH, dizziness, syncope, headaches, wheezing, ST, URI, neck pain, weakness, bowel or bladder dysfunction, saddle anesthesia, numbness or tingling in bilateral upper or lower extremities equally, muscle paralysis, weakness in bilateral upper or lower extremities equally or rash. Denies IV drug use. MEDICATIONS: I agree with the patient medications as charted by the RN. ALLERGIES: I agree with the allergies as charted by the RN. PAST MEDICAL HISTORY/PAST SURGICAL HISTORY: Reviewed and agree as charted by RN. SOCIAL HISTORY: Reviewed and agree as charted by RN. FAMILY HISTORY: No significant familial comorbid conditions directly related to patient complaint EXAM: Reviewed vital signs as charted by RN. REVIEW OF SYSTEMS:reviewed vital signs by RN CONSTITUTIONAL : Denies fever, chills, or sweats. Denies recent illness. EENT: Denies eye, ear, throat, or mouth pain or symptoms. Denies nasal or sinus congestion or discharge. Denies throat, tongue, or mouth swelling or diff iculty swallowing. CARDIOVASCULAR: Denies chest pain. Denies palpitations or racing or irregular heart beat. Denies ankle edema. RESPIRATORY: reports left rib pain. Denies cough, cold, or chest congestion. Denies shortness of breath, difficulty breathing, or wheezing. GASTROINTESTINAL: Denies abdominal pain or distention. Denies nausea, vomiting, or diarrhea. Denies blood in vomitus, stools, or per rectum. Denies black, tarry stools. Denies constipation. GENITOURINARY: Denies difficulty urinating, painful urination, burning, frequency, blood in urine, or discharge. FEMALE GENITOURINARY: Denies vaginal bleeding, heavy or abnormal periods, irregular periods. Denies vaginal discharge or odor. MUSCULOSKELETAL: Denies back or neck pain or stiffness. Denies joint pain or swelling. SKIN: Denies rash, lesions or sores. HEMATOLOGIC : Denies easy bruising or bleeding. LYMPHATIC: Denies swollen, enlarged glands. NEUROLOGICAL: Denies confusion or altered mental status. Denies passing out or loss of consciousness. Denies dizziness or lightheadedness. Denies headache. Denies weakness or paralysis or loss of use of either side. Denies problems with gait or speech. Denies sensory loss, numbness, or tingling. Denies seizures. PSYCHIATRIC: Denies anxiety or stress. Denies depression, suicidal ideation, or homicidal ideation. ALL OTHER SYSTEMS REVIEWED AND NEGATIVE. PHYSICAL EXAMINATION: GENERAL: Well-appearing, well-nourished and in no acute distress. HEAD: Atraumatic, normocephalic. EYES: Pupils equal round and reactive to light, extraocular movements intact, conjunctiva are normal. ENT: Nares patent, oropharynx clear without exudates. Moist mucous membranes. NECK: Normal range of motion, supple without lymphadenopathy LUNGS: Breath sounds clear to auscultation bilaterally and equal. No wheezes rales or rhonchi. Tenderness along left sixth seventh eighth and ninth ribs on palpation, very subtle step-off noted to left eighth rib, no ecchymosis noted. No open wounds or drainage. HEART: Regular rate and rhythm without murmurs ABDOMEN: Soft, nontender, nondistended abdomen. No guarding, no rebound. No masses appreciated. Female : deferred Musculoskeletal: Normal range of motion, no pitting or edema. No cyanosis. NEUROLOGICAL: Cranial nerves grossly intact. Normal speech, normal gait. Normal sensory, motor exams PSYCH: Normal mood, normal affect. SKIN: Warm, Dry, normal turgor, no rashes or lesions noted. Dictation was performed using [employer] voice recognition software - CARDIOVASCULAR Cardiovascular: REPORTS: Chest pain - REPRODUCTIVE Reproductive: DENIES: : Past Medical History - General Information source: Patient - Social History Smoking Status: Current Every Day Smoker Frequency of alcohol use: None Drug Abuse: None Family History: Reviewed & Not Pertinent Patient has homicidal ideation: No - Past Medical History Cardiac Medical History: Reports: Hx Hypertension Pulmonary Medical History: Reports: Hx COPD, Hx Sleep Apnea Denies: Hx Tuberculosis Neurological Medical History: Reports: Hx Seizures Endocrine Medical History: Denies: Hx Diabetes Mellitus Type 1, Hx Diabetes Mellitus Type 2 Renal/ Medical History: Denies: Hx Peritoneal Dialysis Malignancy Medical History: Reports: Hx Lung Cancer. Denies: Hx Leukemia GI Medical History: Reports: Hx Gastritis - Alcoholic gastritis, Hx Gastroesophageal Reflux Disease, Hx Hepatitis - Alcoholic hepatitis, Hx Irritable Bowel, Hx Pancreatitis. Denies: Hx Crohn's Disease, Hx Hiatal Hernia, Hx Liver Failure, Hx Ulcer Musculoskeletal Medical History: Reports Hx Arthritis, Denies Hx Fibromyalgia, Denies Hx Muscular Dystrophy, Reports Hx Musculoskeletal Deformity, Reports Hx Musculoskeletal Trauma Psychiatric Medical History: Reports: Hx Depression Denies: Hx Bipolar Disorder, Hx Post Traumatic Stress Disorder, Hx Schizophrenia Traumatic Medical History: Reports: Hx Fractures - coccyx Infectious Medical History: Reports: Hx Hepatitis - Alcoholic hepatitis. Den ies: Hx HIV Past Surgical History: Reports: Hx Orthopedic Surgery - L ankle, Hx Tubal Ligation. Denies: Hx Appendectomy, Hx Bowel Surgery, Hx Section, Hx Cholecystectomy, Hx Colostomy, Hx Coronary Artery Bypass Graft, Hx Gastric Bypass Surgery, Hx Herniorrhaphy, Hx Hysterectomy, Hx Mastectomy, Hx Pacemaker, Hx Tonsillectomy - Immunizations Immunizations up to date: Yes Hx Diphtheria, Pertussis, Tetanus Vaccination: Yes Hx Pneumococcal Vaccination: 04/12/00 Vertical Provider Document - INFECTION CONTROL TRAVEL OUTSIDE OF THE [place] IN LAST 30 DAYS: No Course - Re-evaluation Re-evalutation: 01/23/20 10:56 On repeat vitals from when this provider saw the patient, vitals are stable and patient is in no distress, afebrile. Patient did receive fentanyl via EMS, I do think this is why her initial blood pressure was low when she did come into the emergency room. left rib x-ray does show a questionable eighth left rib fracture. Discussed the patient that this can take up to 4 to 6 weeks to heal, that she does need to splint and use voldyne as directed. Will send home with a sixpack of [place] to only use when she is having severe pain. Patient requested Dilaudid as this is the only thing that manages her pain. However I discussed with her that she can take the [place] when she is having severe pain qand she can alternate between Tylenol & ibuprofen. When asked her what her allergy was to Toradol and tramadol, she states that she has a history of pancreatitis and sometimes it can upset her stomach. I discussed with patient that one has to eat some substance of food before taking as it can cause gastritis for anybody who takes on an empty stomach. Discussed applying warm compress to affected site 20 minutes on 20 minutes off several times a day. Please follow-up with primary care provider within the next 24 to 48 hours. after performing a Medical Screening Examination, I estimate there is LOW risk for RUPTURED ESOPH RENAE, PNEUMOTHORAX, PULMONARY EMBOLISM, ACUTE CORONARY SYNDROME, OR THORACIC AORTIC DISSECTION, thus I consider the discharge disposition reasonable. I have reevaluated this patient multiple times and no significant life threatening changes are noted. The patient and I have discussed the diagnosis and risks, and we agree with discharging home with close follow-up. We also discussed returning to the Emergency Department immediately if new or worsening symptoms occur. We have discussed the symptoms which are most concerning (e.g., bloody sputum, worsening pain or shortness of breath) that necessitate immediate return. - Vital Signs Vital signs: Temp Pulse Resp BP Pulse Ox 98.2 F 66 20 132/74 H 100 01/23/20 10:48 01/23/20 10:48 01/23/20 10:48 01/23/20 10:48 01/23/20 10:48 - Laboratory Laboratory results interpreted by me: 01/23/20 05:52 POC Glucose 187 H Discharge - Discharge Clinical Impression: Left rib fracture Condition: Stable Disposition: HOME, SELF-CARE Instructions: Rib Injuries and Fractures ([facility]), Rib Contusion ([facility]) Additional Instructions: Rib Injuries and Fractures You have been diagnosed as having either bruised or broken ribs. These two injuries are treated in the same way. It will usually take four to six weeks for these injured ribs to heal. Sometimes, rib belts or anesthetic injections of the chest wall help reduce the pain. If you are using a rib belt, you should cough or take a deep breath at least every hour or two to prevent lung complications. You should not engage in any strenuous physical activity until released by your physician. The usual rule is "if it hurts, don't do it." Rib fractures can lead to serious lung complications including lung collapse, hemorrhage, and pneumonia. You should call the physician or return at once if any of the following occur: (1) Fever or chills. (2) Persistent cough, coughing up blood, or shortness of breath. (3) Increasing pain. (4) Weakness, lightheadedness, or fainting. Please do not drive, drink or operate heavy machinery while taking medication as can cause sedation and decrease in Cognitive functions while taking narcotics. Please use incentive spirometer X 10 times an hour and cough at least twice an hour prevent atelectasis or pneumonia. Please splint while having to cough or sneeze. Please only take the [place] when you are in severe pain. You can alternate between Tylenol and ibuprofen. Please follow-up with your primary care provider within the next 24 to 48 hours. You can take up to 4 to 6 weeks for ribs to completely heal. Return immediately for any new or worsening symptoms. Follow up with primary care provider, call tomorrow to make followup appointment . Referrals: MOHAMUD SERRA MD [Primary Care Provider] - Follow up as needed NELIA GERMAIN DO [ACTIVE STAFF] - Follow up as needed
== END 2020-01-23 10:58 | disposition home or self-care (01) ==
LOC: ER 04:55
DX: S22.32XA Fracture of one rib, left side, initial encounter for closed fracture (principal); R07.81 Pleurodynia; R07.9 Chest pain, unspecified; W22.03XA Walked into furniture, initial encounter; F17.200 Nicotine dependence, unspecified, uncomplicated; I10 Essential (primary) hypertension; J44.9 Chronic obstructive pulmonary disease, unspecified
CPT/HCPCS: 82962; 99284

== ENCOUNTER 2020-04-10 16:46 | Emergency (ER) | payer MEDICAID ==
--- NOTE | 2020-04-10 17:07 | ER Document Report ---
ED General - General Chief Complaint: Probable Seizure Stated Complaint: POSSIBLE SEIZURE Time Seen by Provider: 04/10/20 17:06 Primary Care Provider: MOHAMUD SERRA MD [Primary Care Provider] - Follow up as needed TRAVEL OUTSIDE OF THE [place] IN LAST 30 DAYS: No - HPI Notes: 49-year-old female presents after having a seizure. Patient states that she is a recovering alcoholic, it has been several years since her last seizure. She is on buprenorphine patch, however has not had her patch for 6 days due to her pain management appointment getting canceled. She was able to go to pain management today and a refill was sent to the pharmacy, however the pharmacy stated that they were out of medication and would be getting it in tomorrow. Patient states that while in the parking lot at the pharmacy, she felt her typical aura as if a seizure was going to happen, she states that she opened the car door and yelled out to her , stepped out of the car and then woke up with EMS standing over her. Patient states that her said that she had a seizure. Patient states that she feels like she has had a seizure, she has had pain all over, she has also had increasing pain over the past 6 days with nausea/vomiting. She denies headache, chest pain, shortness of breath. - Related Data Allergies/Adverse Reactions: haloperidol [From Haldol] Allergy (Verified 01/23/20 05:39) Penicillins Allergy (Verified 01/23/20 05:39) ketorolac [From Toradol] Adverse Reaction (Verified 01/23/20 05:39) tramadol Adverse Reaction (Verified 01/23/20 05:39) Past Medical History - General Information source: Patient - Social History Smoking Status: Unknown if Ever Smoked Family History: Reviewed & Not Pertinent - Past Medical History Cardiac Medical History: Reports: Hx Hypertension Pulmonary Medical History: Reports: Hx COPD, Hx Sleep Apnea Denies: Hx Tuberculosis Neurological Medical History: Reports: Hx Seizures Endocrine Medical History: Denies: Hx Diabetes Mellitus Type 1, Hx Diabetes Mellitus Type 2 Renal/ Medical History: Denies: Hx Peritoneal Dialysis Malignancy Medical History: Reports: Hx Lung Cancer. Denies: Hx Leukemia GI Medical History: Reports: Hx Gastritis - Alcoholic gastritis, Hx Gastroesophageal Reflux Disease, Hx Hepatitis - Alcoholic hepatitis, Hx Irritable Bowel, Hx Pancreatitis. Denies: Hx Crohn's Disease, Hx Hiatal Hernia, Hx Liver Failure, Hx Ulcer Musculoskeletal Medical History: Reports Hx Arthritis, Denies Hx Fibromyalgia, Denies Hx Muscular Dystrophy, Reports Hx Musculoskeletal Deformity, Reports Hx Musculoskeletal Trauma Psychiatric Medical History: Reports: Hx Depression Denies: Hx Bipolar Disorder, Hx Post Traumatic Stress Disorder, Hx Schizophrenia Traumatic Medical History: Reports: Hx Fractures - coccyx Infectious Medical History: Reports: Hx Hepatitis - Alcoholic hepatitis. Denies: Hx HIV Past Surgical History: Reports: Hx Orthopedic Surgery - L ankle, Hx Tubal Ligation. Denies: Hx Appendectomy, Hx Bowel Surgery, Hx Section, Hx Cholecystectomy, Hx Colostomy, Hx Coronary Artery Bypass Graft, Hx Gastric Bypass Surgery, Hx Herniorrhaphy, Hx Hysterectomy, Hx Mastectomy, Hx Pacemaker, Hx Tonsillectomy - Immunizations Immunizations up to date: Yes Hx Diphtheria, Pertussis, Tetanus Vaccination: Yes Hx Pneumococcal Vaccination: 04/12/00 Review of Systems - Review of Systems Constitutional: denies: Fever EENT: No symptoms reported Cardiovascular: denies: Chest pain Respiratory: denies: Short of breath Gastrointestinal: denies: Abdominal pain Genitourinary: No symptoms reported Female Genitourinary: No symptoms reported Musculoskeletal: See HPI Skin: No symptoms reported Hematologic/Lymphatic: No symptoms reported Neurological/Psychological: Seizure. denies: Weakness, Headaches Physical Exam - Vital signs Vitals: Resp 31 H 04/10/20 17:10 - General General appearance: Appears well, Alert In distress: None - HEENT Head: Normocephalic, Atraumatic. No: Ecchymosis, Tenderness Extraocular movements intact: Yes Pupils: PERRL Neck: Supple - Respiratory Breath sounds: Normal - Cardiovascular Rhythm: Regular Heart sounds: Normal auscultation - Abdominal Tenderness: Nontender - Extremities General upper extremity: Normal ROM General lower extremity: Normal ROM - Neurological Orientation: AAOx4 Speech: Normal Cranial nerves: Normal Motor strength normal: LUE, RUE, LLE, RLE - Psychological Associated symptoms: Normal affect - Skin Skin Temperature: Warm Course - Re-evaluation Re-evalutation: 49-year-old female presents following a seizure which was witnessed by her , she had an aura which is typical for her when she is going to have a seizure. Patient is currently alert and oriented, hemodynamically stable, she has no gross focal neuro deficits. She has some generalized pain, nausea and vomiting which I suspect actually be due to her withdrawal from buprenorphine. Per patient she will be getting refills tomorrow. Discussed with patient that I have no problem treating her pain, however there is a risk that if she were to receive a drug test from pain management, this could potentially interfere with her contract. Patient is willing to accept the risks, have ordered a low-dose of Dilaudid, along with zofran and fluids. 04/10/20 18:29 Minimal leukocytosis, consider reactionary. No acute anemia. Mild hyponatremia, would not consider this low enough to induce seizure, she received normal saline, chloride additionally low, likely this is from her poor p.o. intake. LFTs lower than previous. EtOH negative. 04/10/20 19:30 Into check on patient, she has been ambulatory without issue, she remains well- appearing, she is provide a urine sample. She is provided ice chips per her request. Still complains of some underlying pain, she is agreeable to trying oral dose 04/10/20 20:18 Urine without UTI UTI, UDS negative. Patient discharged in stable conditions, return precautions provided. - Vital Signs Vital signs: Temp Pulse Resp BP Pulse Ox 98.6 F 20 122/77 100 04/10/20 19:12 04/10/20 19:12 04/10/20 19:12 04/10/20 19:12 - Laboratory Results Result Diagrams: 04/10/20 17:40 04/10/20 17:40 Laboratory Results Interpreted: 04/10/20 04/10/20 04/10/20 17:40 17:40 19:30 WBC 12.5 H Absolute Neuts (auto) 9.5 H Sodium 130.7 L Chloride 97 L Creatinine 0.47 L Glucose 368 H AST 140 H ALT 83 H Alkaline Phosphatase 188 H Lipase 19.0 L Urine Protein 30 H Urine Glucose (UA) >=500 H Urine Ketones 20 H Critical Laboratory Results Reviewed: No Critical Results - Radiology Results Critical Radiology Results Reviewed: No Critical Results - EKG Interpretation by Me Additional EKG results interpreted by me: EKG is interpreted by me. Sinus rhythm, rate 70. Narrow QRS, QTC within normal limits. No ST segment elevation or depression. Discharge - Discharge Clinical Impression: Seizure Disposition: HOME, SELF-CARE Additional Instructions: Please obtain your medication from the pharmacy tomorrow as planned. Continue all of your other medications as prescribed. Please have close follow-up with your primary care doctor. Return to the emergency department for any concerning worsening symptoms. Referrals: MOHAMUD SERRA MD [Primary Care Provider] - Follow up as needed
[2020-04-10] MEDS ORDERED: HYDROMORPHONE HCL INJ/PF 2 MG/ML AMPULE IV ONE (17:20)
[2020-04-10] MEDS ORDERED: ONDANSETRON HCL INJ/PF 4 MG/2 ML SDV IV ONE (17:20)
[2020-04-10] MEDS ORDERED: NORMAL SALINE 500 ML IV ONE (17:20)
[2020-04-10 17:51] LABS: ABSOLUTE BASOPHILS # (AUTO) 0.1 10^3/uL (0.0-0.2); ABSOLUTE LYMPHOCYTES (AUTO) 2.1 10^3/uL (0.5-4.7); ABSOLUTE MONOCYTES (AUTO) 0.9 10^3/uL (0.1-1.4); MONOCYTES % (AUTO) 6.8 % (3-13); TOTAL CELLS COUNTED % (AUTO) 100 %
--- NOTE | 2020-04-10 17:56 | EKG REPORT ---
SEVERITY:- ABNORMAL ECG - SINUS RHYTHM : Confirmed by: Hayes Kaplan MD 10-Apr-2020 17:55:27
[2020-04-10 18:00] LABS: ABSOLUTE NEUT (AUTO) 9.5 10^3/uL (1.7-8.2); BASOPHILS % (AUTO) 0.6 % (0-2); EOSINOPHILS % (AUTO) 0.4 % (0-6); HEMATOCRIT 43.5 % (36.0-47.0); HEMOGLOBIN 15.2 g/dL (12.0-15.5); LYMPHOCYTES % (AUTO) 16.7 % (13-45); MEAN CORPUSCULAR HEMOGLOBIN 32.4 pg (27.0-33.4); MEAN CORPUSCULAR HGB CONC 34.9 g/dL (32.0-36.0); MEAN CORPUSCULAR VOLUME 93 fl (80-97); PLATELET COUNT 236 10^3/uL (150-450); RED BLOOD COUNT 4.68 10^6/uL (3.72-5.28); RED CELL DISTRIBUTION WIDTH 13.3 % (11.5-14.0); SEGMENTED NEUTROPHILS % (AUTO) 75.5 % (42-78); WHITE BLOOD COUNT 12.5 10^3/uL (4.0-10.5)
[2020-04-10 18:12] LABS: ALBUMIN 4.2 g/dL (3.5-5.0); ALKALINE PHOSPHATASE 188 U/L (38-126); ANION GAP 11 (5-19); ASPARTATE AMINO TRANSFERASE 140 U/L (14-36); BILIRUBIN,DIRECT 0.1 mg/dL (0.0-0.4); BILIRUBIN,TOTAL 0.9 mg/dL (0.2-1.3); BLOOD UREA NITROGEN 8 mg/dL (7-20); CALCIUM 9.4 mg/dL (8.4-10.2); CARBON DIOXIDE 23 mmol/L (22-30); CHLORIDE 97 mmol/L (98-107); GLUCOSE 368 mg/dL (75-110); POTASSIUM 4.9 mmol/L (3.6-5.0); TOTAL PROTEIN 8.1 g/dL (6.3-8.2)
[2020-04-10 18:18] LABS: ALCOHOL < 10 mg/dL (NONE DETECTED)
[2020-04-10] MEDS ORDERED: HYDROCODONE/ACETAMINOPHEN 5-325 MG TABLET PO ONE (19:52)
[2020-04-10 20:12] LABS: APPEARANCE,URINE CLEAR; BILIRUBIN,URINE NEGATIVE (NEGATIVE); COLOR,URINE YELLOW; GLUCOSE, URINE >=500 mg/dL (NEGATIVE); KETONES,URINE 20 mg/dL (NEGATIVE); LEUKOCYTE ESTERASE,URINE NEGATIVE (NEGATIVE); NITRITE,URINE NEGATIVE (NEGATIVE); PROTEIN,URINE 30 mg/dL (NEGATIVE); URINE SPECIFIC GRAVITY 1.023; UROBILINOGEN,URINE NEGATIVE mg/dL (<2.0)
[2020-04-10 20:22] LABS: URINE AMPHETAMINES SCREEN NEGATIVE; URINE BARBITURATES SCREEN NEGATIVE; URINE BENZODIAZEPINES SCREEN NEGATIVE; URINE COCAINE SCREEN NEGATIVE; URINE MARIJUANA (THC) SCREEN NEGATIVE; URINE METHADONE SCREEN NEGATIVE; URINE PHENCYCLIDINE SCREEN NEGATIVE
[2020-04-10 20:50] VITALS: BP 107/76
== END 2020-04-10 21:00 | disposition home or self-care (01) ==
LOC: ER 16:46
DX: G40.909 Epilepsy, unspecified, not intractable, without status epilepticus (principal)
CPT/HCPCS: 93005; 99284; 96361; 96374; 96375; 36415; 80307 ×2; 83690; 83735; 85025; 81025; 80053; 81001; 93010; J1170; J2405; J7040

== ENCOUNTER 2020-04-25 12:24 | Emergency (ER) | payer MEDICAID ==
[2020-04-25] MEDS ORDERED: OXYCODONE-ACETAMINOPHEN 5-325 MG TABLET PO ONE (13:23)
--- NOTE | 2020-04-25 13:26 | ER Document Report ---
ED Medical Screen (RME) - General Stated Complaint: FALL/RIB PAIN Time Seen by Provider: 04/25/20 13:16 Primary Care Provider: MOHAMUD SERRA MD [Primary Care Provider] - Follow up as needed Mode of Arrival: Wheelchair Information source: Patient Notes: 49-year-old female patient presents the emergency department concern for possible injuries from a fall. Patient reports 2 nights ago her told her she went "absolutely crazy" in the house. She was apparently destroying items. She is apparently throwing herself around the house and received multiple injuries. Patient is complaining of bilateral leg pain, she has bruises to both lower extremities. She is also complaining of right rib pain, pain worse with deep breaths, denies shortness of breath. She is also complaining of tailbone pain, posterior head pain and forehead pain. Lung sounds clear and equal bilaterally. No obvious ecchymosis or crepitus noted to right ribs. Patient will need to be seen and evaluated in the emergency department by another provider so she can have a full physical examination to determine if she has any other injuries as she has multiple complaints. I have greeted and performed a rapid initial assessment of this patient. A comprehensive ED assessment and evaluation of the patient, analysis of test results and completion of the medical decision making process will be conducted by additional ED providers. I have specifically instructed the patient or family members with the patient to immediately return to any nursing staff should anything change in the patient's condition or with their chief complaint. TRAVEL OUTSIDE OF THE [place] IN LAST 30 DAYS: No - Related Data Allergies/Adverse Reactions: haloperidol [From Haldol] Allergy (Verified 01/23/20 05:39) Penicillins Allergy (Verified 01/23/20 05:39) ketorolac [From Toradol] Adverse Reaction (Verified 01/23/20 05:39) tramadol Adverse Reaction (Verified 01/23/20 05:39) Past Medical History - Social History Frequency of alcohol use: Rare Family history: Reviewed & Not Pertinent - Past Medical History Cardiac Medical History: Reports: Hx Hypertension Pulmonary Medical History: Reports: Hx COPD, Hx Sleep Apnea Denies: Hx Tuberculosis Neurological Medical History: Reports: Hx Seizures Endocrine Medical History: Denies: Hx Diabetes Mellitus Type 1, Hx Diabetes Mellitus Type 2 Renal/ Medical History: Denies: Hx Peritoneal Dialysis Malignancy Medical History: Reports: Hx Lung Cancer. Denies: Hx Leukemia GI Medical History: Reports: Hx Gastritis - Alcoholic gastritis, Hx Gastroesophageal Reflux Disease, Hx Hepatitis - Alcoholic hepatitis, Hx Irritable Bowel, Hx Pancreatitis. Denies: Hx Crohn's Disease, Hx Hiatal Hernia, Hx Liver Failure, Hx Ulcer Musculoskeltal Medical History: Reports Hx Arthritis, Denies Hx Fibromyalgia, D enies Hx Muscular Dystrophy, Reports Hx Musculoskeletal Deformity, Reports Hx Musculoskeletal Trauma Psychiatric Medical History: Reports: Hx Depression Denies: Hx Bipolar Disorder, Hx Post Traumatic Stress Disorder, Hx Schizophrenia Traumatic Medical History: Reports: Hx Fractures - coccyx Infectious Medical History: Reports: Hx Hepatitis - Alcoholic hepatitis. Denies: Hx HIV Past Surgical History: Reports: Hx Orthopedic Surgery - L ankle, Hx Tubal Ligation. Denies: Hx Appendectomy, Hx Bowel Surgery, Hx Section, Hx Cholecystectomy, Hx Colostomy, Hx Coronary Artery Bypass Graft, Hx Gastric Bypass Surgery, Hx Herniorrhaphy, Hx Hysterectomy, Hx Mastectomy, Hx Pacemaker, Hx Tonsillectomy - Immunizations Immunizations up to date: Yes Hx Diphtheria, Pertussis, Tetanus Vaccination: Yes Doctor's Discharge - Discharge Referrals: MOHAMUD SERRA MD [Primary Care Provider] - Follow up as needed
[2020-04-25 13:55] VITALS: BP 95/62
--- NOTE | 2020-04-25 14:02 | RADIOLOGY REPORT (SQ) ---
EXAM DESCRIPTION: RIBS RIGHT W/PA CHEST IMAGES COMPLETED DATE/TIME: 04/25/2020 1:46 pm REASON FOR STUDY: R anteriolateral rib pain s/p injury COMPARISON: None. TECHNIQUE: Frontal view of the chest and additional views of the right ribs acquired. NUMBER OF VIEWS: Three view. LIMITATIONS: None. FINDINGS: FRONTAL CXR: No pneumothorax. No pleural effusion. No atelectasis or infiltrates. RIBS: Minimally displaced acute right 9th rib fracture. OTHER: No other significant finding. IMPRESSION: 1. NO PNEUMOTHORAX. 2. Minimally displaced acute right 9th rib fracture. COMMENT: SITE OF TRAUMA/COMPLAINT MARKED/STAMP COMPLETED: YES. TECHNICAL DOCUMENTATION: JOB ID: [id number] [employer]- All Rights Reserved Reading location - IP/workstation name: [email or web address]
[2020-04-25] MEDS ORDERED: HYDROMORPHONE HCL INJ/PF 2 MG/ML AMPULE IV ONE (14:08)
[2020-04-25 14:43] LABS: ABSOLUTE BASOPHILS # (AUTO) 0.2 10^3/uL (0.0-0.2); ABSOLUTE MONOCYTES (AUTO) 0.6 10^3/uL (0.1-1.4); ABSOLUTE NEUT (AUTO) 7.7 10^3/uL (1.7-8.2); BASOPHILS % (AUTO) 1.6 % (0-2); EOSINOPHILS % (AUTO) 0.5 % (0-6); HEMATOCRIT 50.7 % (36.0-47.0); HEMOGLOBIN 16.9 g/dL (12.0-15.5); LYMPHOCYTES % (AUTO) 19.1 % (13-45); MEAN CORPUSCULAR HEMOGLOBIN 31.1 pg (27.0-33.4); MEAN CORPUSCULAR HGB CONC 33.3 g/dL (32.0-36.0); MEAN CORPUSCULAR VOLUME 93 fl (80-97); MONOCYTES % (AUTO) 5.6 % (3-13); PLATELET COUNT 432 10^3/uL (150-450); RED BLOOD COUNT 5.43 10^6/uL (3.72-5.28); RED CELL DISTRIBUTION WIDTH 13.1 % (11.5-14.0); SEGMENTED NEUTROPHILS % (AUTO) 73.2 % (42-78); TOTAL CELLS COUNTED % (AUTO) 100 %; WHITE BLOOD COUNT 10.5 10^3/uL (4.0-10.5)
[2020-04-25 15:03] LABS: ALCOHOL 52 mg/dL (NONE DETECTED)
--- NOTE | 2020-04-25 15:19 | RADIOLOGY REPORT (SQ) ---
EXAM DESCRIPTION: CT HEAD WITHOUT IMAGES COMPLETED DATE/TIME: 04/25/2020 3:10 pm REASON FOR STUDY: Headache, seizure, trauma COMPARISON: None. TECHNIQUE: Axial images acquired through the brain without intravenous contrast. Images reviewed wi th bone, brain and subdural windows. Additional sagittal and coronal reconstructions were generated. Images stored on PACS. All CT scanners at this facility use dose modulation, iterative reconstruction, and/or weight based d osing when appropriate to reduce radiation dose to as low as reasonably achievable (ALARA). [facility]: Dose Right [facility]: CareDose [facility]: Dose Right [facility]: Teradose 4D [facility]: Smart Slack RADIATION DOSE: CT Rad equipment meets quality standard of care and radiation dose reduction techniq ues were employed. CTDIvol: 53.2 mGy. DLP: 1017 mGy-cm. mGy. LIMITATIONS: None. FINDINGS: VENTRICLES: Normal size and contour. CEREBRUM: No masses. No hemorrhage. No midline shift. No evidence for acute infarction. Normal gra y/white matter differentiation. No areas of low density in the white matter. CEREBELLUM: No masses. No hemorrhage. No alteration of density. No evidence for acute infarction. EXTRAAXIAL SPACES: No fluid collections. No masses. ORBITS AND GLOBE: No intra- or extraconal masses. Normal contour of globe without masses. CALVARIUM: No fracture. PARANASAL SINUSES: No fluid or mucosal thickening. SOFT TISSUES: No mass or hematoma. OTHER: No other significant finding. IMPRESSION: NORMAL BRAIN CT WITHOUT CONTRAST. EVIDENCE OF ACUTE STROKE: NO. COMMENT: Quality ID # [id number]: Final reports with documentation of one or more dose reduction techniques (e.g., Automated exposure control, adjustment of the mA and/or kV according to patient size, use of iterative reconstruction technique) TECHNICAL DOCUMENTATION: JOB ID: [id number] 2010 [employer]- All Rights Reserved Reading location - IP/workstation name: [email or web address]
--- NOTE | 2020-04-25 15:23 | RADIOLOGY REPORT (SQ) ---
EXAM DESCRIPTION: CT CHEST WITH IMAGES COMPLETED DATE/TIME: 04/25/2020 3:13 pm REASON FOR STUDY: Headache, seizure, trauma COMPARISON: 07/15/2016. TECHNIQUE: CT scan of the chest performed using helical scanning technique with dynamic intravenous contrast injection. Images reviewed with lung, soft tissue and bone windows. Reconstructed coronal and sagittal MPR and MIP images reviewed. All images stored on PACS. All CT scanners at this facility use dose modulation, iterative reconstruction, and/or weight based d osing when appropriate to reduce radiation dose to as low as reasonably achievable (ALARA). [facility]: Dose Right [facility]: CareDose [facility]: Dose Right [facility]: Teradose 4D [facility]: [employer] CONTRAST TYPE AND DOSE: contrast/concentration: Isovue 350.00 mmol/ml; Total Contrast Delivered: 45. 0 ml; Total Saline Delivered: 35.8 ml RENAL FUNCTION: GFR > 60. RADIATION DOSE: CT Rad equipment meets quality standard of care and radiation dose reduction techniq ues were employed. CTDIvol: NaN - NaN mGy. DLP: 0 mGy-cm. . LIMITATIONS: None. FINDINGS: LUNGS AND PLEURA: Severe emphysema. Decrease in size of spiculated nodule in the right up per lobe consistent with benign process or favorable response to therapy. No new nodules. No infilt rate. No effusions. HILAR AND MEDIASTINAL STRUCTURES: No identified masses or abnormal nodes. HEART AND VASCULAR STRUCTURES: No aneurysm or dissection. No central pulmonary emboli. No pericardi al effusion. HARDWARE: None in the chest. UPPER ABDOMEN: See separate report of the CT of the abdomen. THYROID AND OTHER SOFT TISSUES: No masses. No adenopathy. BONES: No acute findings. OTHER: No other significant finding. IMPRESSION: Emphysema. No acute findings. TECHNICAL DOCUMENTATION: JOB ID: [id number] Quality ID # [id number]: Final reports with documentation of one or more dose reduction techniques (e.g., Au tomated exposure control, adjustment of the mA and/or kV according to patient size, use of iterative reconstruction technique) 2010 [employer]- All Rights Reserved Reading location - IP/workstation name: [email or web address]
--- NOTE | 2020-04-25 15:23 | RADIOLOGY REPORT (SQ) ---
EXAM DESCRIPTION: CT CERVICAL SPINE WITHOUT IMAGES COMPLETED DATE/TIME: 04/25/2020 3:10 pm REASON FOR STUDY: Headache, seizure, trauma COMPARISON: None. TECHNIQUE: Axial images acquired through the cervical spine without intravenous contrast. Images re viewed with lung, soft tissue and bone windows. Reconstructed coronal and sagittal MPR images review ed. Images stored on PACS. All CT scanners at this facility use dose modulation, iterative reconstruction, and/or weight based d osing when appropriate to reduce radiation dose to as low as reasonably achievable (ALARA). [facility]: Dose Right [facility]: CareDose [facility]: Dose Right [facility]: Teradose 4D [facility]: Smart [employer] RADIATION DOSE: CT Rad equipment meets quality standard of care and radiation dose reduction techniq ues were employed. CTDIvol: 6.2 mGy. DLP: 112 mGy-cm. mGy. LIMITATIONS: None. FINDINGS: ALIGNMENT: Anatomic. MINERALIZATION: Normal. VERTEBRAL BODIES: No fractures or dislocation. DISCS: There is disc narrowing from C4-C7 with small marginal osteophytes. FACETS, LATERAL MASSES, POSTERIOR ELEMENTS: No fractures. No dislocation. No acute findings. HARDWARE: None in the spine. VISUALIZED RIBS: No fractures. LUNG APICES AND SOFT TISSUES: No significant or acute findings. OTHER: No other significant finding. IMPRESSION: Degenerative disc disease and spondylosis. No acute finding. TECHNICAL DOCUMENTATION: JOB ID: [id number] Quality ID # [id number]: Final reports with documentation of one or more dose reduction techniques (e.g., Au tomated exposure control, adjustment of the mA and/or kV according to patient size, use of iterative reconstruction technique) 2010 [employer]- All Rights Reserved Reading location - IP/workstation name: [email or web address]
--- NOTE | 2020-04-25 15:26 | RADIOLOGY REPORT (SQ) ---
EXAM DESCRIPTION: CT ABD/PELVIS WITH IV ONLY IMAGES COMPLETED DATE/TIME: 04/25/2020 3:13 pm REASON FOR STUDY: Headache, seizure, trauma, back/abd pain COMPARISON: 08/22/2019 TECHNIQUE: CT scan of the abdomen and pelvis performed using helical scanning technique with dynamic intravenous contrast injection. No oral contrast. Images reviewed with lung, soft tissue, and bone windows. Reconstructed coronal and sagittal MPR images reviewed. Delayed images for evaluation of the urinary system also acquired. All images stored on PACS. All CT scanners at this facility use dose modulation, iterative reconstruction, and/or weight based d osing when appropriate to reduce radiation dose to as low as reasonably achievable (ALARA). [facility]: Dose Right [facility]: CareDose [facility]: Dose Right [facility]: Teradose 4D [facility]: [employer] RENAL FUNCTION: GFR > 60. RADIATION DOSE: . LIMITATIONS: None. FINDINGS: LOWER CHEST: See separate report of the CT of the chest. LIVER: Normal size. Fatty change. No masses. No dilated ducts. SPLEEN: Normal size. No focal lesions. PANCREAS: Calcifications from chronic pancreatitis. No acute findings. GALLBLADDER: No identified stones by CT criteria. No inflammatory changes to suggest cholecystitis. ADRENAL GLANDS: No significant masses or asymmetry. RIGHT KIDNEY AND URETER: No solid masses. No significant calcifications. No hydronephrosis or hyd roureter. LEFT KIDNEY AND URETER: No solid masses. No significant calcifications. No hydronephrosis or hydr oureter. AORTA AND VESSELS: No aneurysm. RETROPERITONEUM: No retroperitoneal adenopathy, hemorrhage or masses. BOWEL AND PERITONEAL CAVITY: No masses or inflammatory changes. No free fluid or peritoneal masses. APPENDIX: Not visualized. PELVIS: No mass. No free fluid. Normal bladder. ABDOMINAL WALL: No masses. No hernias. BONES: No significant or acute findings. OTHER: No other significant finding. IMPRESSION: No acute findings. Sequela of chronic pancreatitis. TECHNICAL DOCUMENTATION: JOB ID: [id number] Quality ID # [id number]: Final reports with documentation of one or more dose reduction techniques (e.g., Au tomated exposure control, adjustment of the mA and/or kV according to patient size, use of iterative reconstruction technique) 2010 [employer]- All Rights Reserved Reading location - IP/workstation name: [email or web address]
[2020-04-25 16:11] LABS: ALBUMIN 4.1 g/dL (3.5-5.0); ALKALINE PHOSPHATASE 154 U/L (38-126); ANION GAP 12 (5-19); ASPARTATE AMINO TRANSFERASE 43 U/L (14-36); BILIRUBIN,DIRECT 0.3 mg/dL (0.0-0.4); BILIRUBIN,TOTAL 0.5 mg/dL (0.2-1.3); BLOOD UREA NITROGEN 7 mg/dL (7-20); CALCIUM 9.3 mg/dL (8.4-10.2); CARBON DIOXIDE 22 mmol/L (22-30); CHLORIDE 103 mmol/L (98-107); GLUCOSE 352 mg/dL (75-110); POTASSIUM 4.8 mmol/L (3.6-5.0); TOTAL PROTEIN 8.1 g/dL (6.3-8.2)
[2020-04-25] MEDS ORDERED: ACETAMINOPHEN WITH CODEINE #3 TABLET PO ONE (16:45)
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
[2020-04-25 16:55] LABS: URINE AMPHETAMINES SCREEN NEGATIVE; URINE BARBITURATES SCREEN NEGATIVE; URINE BENZODIAZEPINES SCREEN NEGATIVE; URINE COCAINE SCREEN NEGATIVE; URINE MARIJUANA (THC) SCREEN NEGATIVE; URINE METHADONE SCREEN NEGATIVE; URINE PHENCYCLIDINE SCREEN NEGATIVE
[2020-04-25 17:02] LABS: APPEARANCE,URINE CLEAR; BILIRUBIN,URINE NEGATIVE (NEGATIVE); COLOR,URINE YELLOW; GLUCOSE, URINE >=500 mg/dL (NEGATIVE); KETONES,URINE NEGATIVE (NEGATIVE); LEUKOCYTE ESTERASE,URINE NEGATIVE (NEGATIVE); NITRITE,URINE NEGATIVE (NEGATIVE); PROTEIN,URINE NEGATIVE (NEGATIVE); UROBILINOGEN,URINE NEGATIVE mg/dL (<2.0)
[2020-04-25 17:03] LABS: URINE SPECIFIC GRAVITY > 1.060
== END 2020-04-25 17:20 | disposition home or self-care (01) ==
LOC: ER 12:24
DX: S22.31XA Fracture of one rib, right side, initial encounter for closed fracture (principal); S80.02XA Contusion of left knee, initial encounter; S80.01XA Contusion of right knee, initial encounter; S80.12XA Contusion of left lower leg, initial encounter; S80.11XA Contusion of right lower leg, initial encounter; S50.02XA Contusion of left elbow, initial encounter; S50.01XA Contusion of right elbow, initial encounter; R10.817 Generalized abdominal tenderness; R51.9 Headache, unspecified; X58.XXXA Exposure to other specified factors, initial encounter; M50.30 Other cervical disc degeneration, unspecified cervical region; M47.812 Spondylosis without myelopathy or radiculopathy, cervical region; J43.9 Emphysema, unspecified; E11.9 Type 2 diabetes mellitus without complications; F17.200 Nicotine dependence, unspecified, uncomplicated; I10 Essential (primary) hypertension; Z88.8 Allergy status to other drugs, medicaments and biological substances; Z88.0 Allergy status to penicillin; Z85.118 Personal history of other malignant neoplasm of bronchus and lung
CPT/HCPCS: 99285; 96374; 36415; 80307 ×2; 83690; 83735; 85025; 80053; 81001; 71101; 70450; 71260; 72125; 74177; J1170